=== PATIENT | female | born 1965 | race Two or more races ===

== ENCOUNTER 2021-05-12 12:13 | Outpatient (REF) | payer MEDICAID, OTHER, SELFPAY ==
--- NOTE | ~2021-05-12 | XR_ITS ---
EXAMINATION: XR LUMBAR SPINE XR SACRUM/COCCYX. CLINICAL INFORMATION: Lumbago with sciatica COMPARISON: None TECHNIQUE: 4 views of the lumbar spine. 3 views of the sacrum/coccyx. FINDINGS: There is no acute fracture. Grade 1 anterolisthesis of L5 on S1. Remainder vertebral body alignment is maintained. Disc space narrowing of L5-S1 most prominently. Mild narrowing at L4-L5. The sacroiliac joints are symmetric. No abnormal sclerosis. No fusion. The sacrum is intact. The coccyx is well aligned. Normal bowel gas pattern. XR/XR sacrum coccyx min 2V IMPRESSION: No acute abnormality. Grade 1 anterolisthesis of L5 on S1 with degenerative changes at the lower lumbar spine. Intact sacrum.
--- NOTE | ~2021-05-12 | XR_ITS ---
EXAMINATION: XR LUMBAR SPINE XR SACRUM/COCCYX. CLINICAL INFORMATION: Lumbago with sciatica COMPARISON: None TECHNIQUE: 4 views of the lumbar spine. 3 views of the sacrum/coccyx. FINDINGS: There is no acute fracture. Grade 1 anterolisthesis of L5 on S1. Remainder vertebral body alignment is maintained. Disc space narrowing of L5-S1 most prominently. Mild narrowing at L4-L5. The sacroiliac joints are symmetric. No abnormal sclerosis. No fusion. The sacrum is intact. The coccyx is well aligned. Normal bowel gas pattern. XR/XR lumbar spine 4V min IMPRESSION: No acute abnormality. Grade 1 anterolisthesis of L5 on S1 with degenerative changes at the lower lumbar spine. Intact sacrum.
== END 2021-05-12 12:14 | disposition home or self-care (01) ==
LOC: HO.XRAY 12:13
PROVIDERS: Visit Provider Emergency Medicine
DX: M53.3 Sacrococcygeal disorders, not elsewhere classified (principal); M54.41 Lumbago with sciatica, right side
CPT/HCPCS: 72110; 72220

== ENCOUNTER 2023-03-17 14:59 | Outpatient (REF) | payer MEDICAID, OTHER, SELFPAY ==
--- NOTE | ~2023-03-17 | XR_ITS ---
EXAMINATION: XR LUMBOSACRAL SPINE WITH OBLIQUES CLINICAL INFORMATION: SPONDYLOLISTHESIS AT LEVEL L5-S1 RECENT BACK SURGERY NOW HAS WORSENING PAIN. COMPARISON: Lumbar spine May 12, 2021 TECHNIQUE: AP, both oblique, and lateral views of the lumbar spine. Lateral view of the lumbosacral junction. FINDINGS: Status post fusion with transpedicular screws and vertical stabilization bar bilaterally at L5-S1. Disc spacer at L5-S1. Hardware is intact. Stable grade 1 anterolisthesis of L5 on S1. No spondylolysis. No fracture. No bone destruction. Minor degenerative lipping at the anterior endplates of L1 and L2. XR/XR lumbar spine 4V min IMPRESSION: Status post fusion L5-S1. Hardware is intact. Stable grade 1 anterolisthesis of L5 on S1. No acute abnormality.
== END 2023-03-17 15:00 | disposition home or self-care (01) ==
LOC: HO.HHCX 14:59
PROVIDERS: Visit Provider Emergency Medicine
DX: M43.17 Spondylolisthesis, lumbosacral region (principal)
CPT/HCPCS: 72110

== ENCOUNTER 2023-04-07 13:14 | Outpatient (AMB) | payer OTHER, SELFPAY ==
--- NOTE | 2023-04-07 13:49 | MHC.OFFVIS ---
Intake Intake Visit Reasons: back pain Networking Administrator Required: No Assessment & Plan Assessment & Plan (1) Carpal tunnel syndrome: Code(s): G56.00 - Carpal tunnel syndrome, unspecified upper limb (2) Lumbar degenerative disc disease: Code(s): M51.36 - Other intervertebral disc degeneration, lumbar region Plan MRs Rojelio Benz is here in follow-up today. She underwent a trans Kambin oblique lumbar interbody fusion on September 05 of this year. Initially she did well for about a month with relief of her leg pain but now she is reporting that she is having progressive worsening of back pain along the left paraspinal region radiating down into her left buttock and into her left lateral thigh. It is aggravated with standing and walking gets better when she sits down. She will take ibuprofen if she needs. The symptoms are getting steadily worse. On exam she is very uncomfortable with standing and walking and she has a lot of pain along the left paraspinal incision. Her overall gross motor examination is normal. The x-rays done today show stable placement of hardware compare it to where was left at the time of her surgery. She also wanted discuss carpal tunnel symptoms that she has been having for quite some time as well. She has had many months of hand numbness at night with pain along her wrist with feelings of weakness. She had a positive Tinel sign and some mild weakness of the hand. Impression: 57-year-old female status post L5-S1 trans Kambin lumbar interbody fusion, who had a nice clinical response for about a month but now has had progressive steadily return of the pain and numbness down her left leg as well as back pain. Her x-rays show stable positioning of the hardware. I am going to order lumbar MRI and a CT scan to better evaluate the source of the issue. I will also get a right upper extremity EMG to establish a diagnosis of carpal tunnel as she is interested in surgery for that if we can not fix it. Total amount of time spent in this visit was 20 minutes in discussion of symptoms, x-ray imaging results and subsequent plan of care Trell Fuller MD,PhD [facility] Orders: Orders CT lumbar spine wo IV con Today M51.36 - Other intervertebral disc degeneration, lumbar region NE electromyogram (EMG) Today G56.00 - Carpal tunnel syndrome, unspecified upper limb MR lumbar spine wo con Today M51.36 - Other intervertebral disc degeneration, lumbar region Coding Level of Care Code Est Pt Level 3 (83059) Diagnoses Carpal tunnel syndrome G56.00 Lumbar degenerative disc disease M51.36
== END 2023-04-07 14:28 | disposition home or self-care (01) ==
PROVIDERS: Visit Provider Physician Assistant
DX: G56.00 Carpal tunnel syndrome, unspecified upper limb (principal); M51.36 Other intervertebral disc degeneration, lumbar region
CPT/HCPCS: 99213

== ENCOUNTER → 2023-04-07 13:14 | Outpatient (BNVA) | payer OTHER, SELFPAY | PROVIDERS: Visit Provider Physician Assistant | DX: G56.00 Carpal tunnel syndrome, unspecified upper limb (principal); M51.36 Other intervertebral disc degeneration, lumbar region | CPT/HCPCS: 99212 ==

== ENCOUNTER 2023-05-19 13:36 | Outpatient (REF) | payer OTHER, SELFPAY ==
--- NOTE | ~2023-05-19 | CT_ITS ---
EXAMINATION: CT LUMBAR SPINE WITHOUT CONTRAST CLINICAL INFORMATION: Lumbar disc degeneration COMPARISON: Lumbar radiographs 03/17/2023 TECHNIQUE: A multidetector CT acquisition of the lumbar spine is obtained without contrast. This CT examination was performed using dose optimization techniques as appropriate, variously including the following: *Automated exposure control *Adjustment of mA and/or kV according to patient size (this includes techniques or standardized protocols for targeted exams where dose is matched to indication/reason for exam; i.e. extremities or head) *Use of iterative reconstruction technique DLP: 408.03 mGy-cm FINDINGS: Postsurgical changes status post L5-S1 instrumented posterior interbody fusion utilizing paired vertical stabilization rods and bilateral transpedicular screws at the surgical levels. There is no periprosthetic lucency to suggest osteolysis. There is an L5-S1 interbody disc cage without interbody bone fusion mass. There is subsidence of the interbody disc cage, more pronounced along the S1 upper endplate, with a somewhat vertical positioning of the interbody disc cage as seen on prior radiographs. L5-S1 endplate cortical irregularity/erosive change, subjacent sclerosis and vacuum disc phenomenon may reflect pseudoarthrosis and can be correlated with the surgical timeline. Superimposed infection is a less likely diagnostic consideration given the presence of vacuum disc phenomenon. Please note comparison of endplate changes with prior radiographs from 03/17/2023 is limited across imaging modalities. Mild lumbar dextrocurvature with lower lumbar hyperlordosis. Slight anterolisthesis at L5-S1. Vertebral body heights are maintained. There is no suspicious osseous lesion. The nonsurgical intervertebral disc heights are preserved. Please not canal patency is not well assessed on this examination due to inherent limitations of CT without intrathecal contrast. Within these limitations, multilevel degenerative changes with level by level detail are as follows: L1-L2: No spinal canal or neural foraminal stenosis. L2-L3: Minimal annular disc bulge and mild bilateral facet hypertrophy. No spinal canal or neural foraminal stenosis. L3-L4: Minimal annular disc bulge and mild bilateral facet hypertrophy. No spinal canal or neural foraminal stenosis. L4-L5: Slight posterior disc uncovering/annular disc bulge and bilateral facet arthrosis. No diagnostic assessment of the spinal canal however no bony spinal canal narrowing is seen. Mild right greater than left neural foraminal stenosis. L5-S1: Postsurgical changes as above. Kyphotic angulation at the lumbosacral junction with dorsally projecting bony protuberance off the S1 superior endplate. Grade 1 anterolisthesis, disc osteophyte complex and bilateral facet arthrosis. Although streak artifact limits assessment, there is severe spinal canal stenosis and subarticular zone narrowing just below the disc space. Severe left and moderate to severe right neural foraminal stenosis with mass effect along the exiting left greater than right L5 nerve roots. Postsurgical changes in the paraspinal soft tissues with overlying scarring extending to the skin surface. Trace calcific atherosclerotic disease. The abdominal aorta is of normal contour and caliber. Mild degenerative osseous spurring across the sacroiliac joints, including an accessory articulation across the posterior joint on the right with vacuum disc phenomenon. CT/CT lumbar spine wo IV con IMPRESSION: Postsurgical changes status post L5-S1 instrumented posterior interbody fusion. Subsidence of the interbody disc cage, more pronounced along the S1 upper endplate, with a somewhat vertically oriented interbody cage as seen on prior radiographs. L5-S1 cortical endplate irregularity/erosive change, subjacent sclerosis and vacuum disc phenomenon may reflect pseudoarthrosis however can be correlated with the surgical timeline. Superimposed infection is a less likely diagnostic consideration given the presence of vacuum disc phenomenon. Please note comparison of endplate changes with prior radiographs from 03/17/2023 is limited across imaging modalities. There is kyphotic angulation at the lumbosacral junction with dorsally projecting bony protuberance off the S1 superior endplate in conjunction with spondylosis at L5-S1 resulting in severe spinal canal stenosis, severe left and moderate to severe right neural foraminal stenosis with mass effect along the exiting left greater than right L5 nerve roots.
== END 2023-05-19 13:37 | disposition home or self-care (01) ==
LOC: HO.CT 13:36
PROVIDERS: PCP Registered Nurse; Visit Provider Physician Assistant
DX: M51.36 Other intervertebral disc degeneration, lumbar region (principal)
CPT/HCPCS: 72131

== ENCOUNTER 2023-06-02 14:21 | Outpatient (REF) | payer OTHER, SELFPAY ==
--- NOTE | ~2023-06-02 | MR_ITS ---
EXAMINATION: MR LUMBAR SPINE WITHOUT CONTRAST CLINICAL INFORMATION: Intervertebral disc degeneration. COMPARISON: CT lumbar spine on 05/19/2023. TECHNIQUE: MRI of the lumbar spine was obtained using routine sequences without contrast. FINDINGS: Transitional anatomy with sacralization of the L5. Exaggerated lumbar lordosis. Postsurgical changes from posterior spinal fusion and interbody spacer at L5-S1 with associated susceptibility artifact slightly limiting evaluation. Grade 1 anterolisthesis at L5-S1 and to a lesser extent L4-L5. The vertebral body heights are otherwise preserved. Multilevel disc desiccation without significant disc height loss. The visualized spinal cord is normal in caliber. No abnormal cord signal. The conus medullaris terminates at L1. T12-L1: No significant spinal canal or neural foraminal narrowing. L1-L2: No significant spinal canal or neural foraminal narrowing. L2-L3: Small disc bulge. No significant spinal canal or neural foraminal narrowing. L3-L4: Tiny disc bulge. No significant spinal canal or neural foraminal narrowing. L4-L5: Diffuse disc bulge and bilateral facet arthrosis. Mild right neural foraminal narrowing with the disc abutting the right exiting L4 nerve roots. L5-S1: Postsurgical changes. Severe spinal canal stenosis with likely impingement of the cauda equina nerve roots at this level. [id number] right and moderate left neural foraminal narrowing with mass effect on the exiting L5 nerve roots bilaterally. The paravertebral soft tissues are unremarkable. MR/MR lumbar spine wo con IMPRESSION: - Postsurgical changes from posterior spinal fusion and interbody spacer at L5-S1 with grade 1 anterolisthesis at this level. Also at this level, there is severe spinal canal stenosis with likely impingement of the cauda equina nerve roots and moderate to severe right and moderate left neural foraminal narrowing with mass effect on the exiting L5 nerve roots bilaterally. - At L4-L5, there is mild right neural foraminal narrowing with the disc abutting the exiting right L4 nerve root.
== END 2023-06-02 14:22 | disposition home or self-care (01) ==
LOC: HO.MRI 14:21
PROVIDERS: PCP Registered Nurse; Visit Provider Neurological Surgery
DX: M51.36 Other intervertebral disc degeneration, lumbar region (principal)
CPT/HCPCS: 72148

== ENCOUNTER 2023-06-16 10:06 | Outpatient (REF) | payer OTHER, SELFPAY ==
--- NOTE | 2023-06-16 10:09 | EMG_ITS ---
Chief complaint: Right hand numbness Reason for referral: Evaluate for Carpal Tunnel Syndrome Referred by: Trell JENKINS Procedure done: Right upper extremity NCS/EMG Precautions and/or limitations: Seen with germ drier The limb temperature was monitored continuously and remained between 32-36 degrees C during the performance of the NCS. Nerve Conduction Studies Anti Sensory Summary Table ?Stim Site NR Onset (ms) Norm Onset (ms) Peak (ms) Norm Peak (ms) O-P Amp (?V) Norm O-P Amp Site1 Site2 Delta-0 (ms) Dist (cm) Bakari (m/s) Norm Bakari (m/s) Right Median Anti Sensory (2nd Digit) Wrist ? 4.8 6.2 <3.6 5.9 >10 Wrist 2nd Digit 4.8 14.0 29 Right Radial Anti Sensory (Thumb) Forearm ? 1.6 2.0 <3.1 37.3 Forearm Thumb 1.6 0.0 Right Ulnar Anti Sensory (5th Digit) Wrist ? 2.3 3.0 <3.7 21.5 >15.0 Wrist 5th Digit 2.3 14.0 61 Motor Summary Table ?Stim Site NR Onset (ms) Norm Onset (ms) O-P Amp (mV) Norm O-P Amp iAmp (mV) Amp (1st) (%) Site1 Site2 Delta-0 (ms) Dist (cm) Bakari (m/s) Norm Bakari (m/s) Right Median Motor (Abd Poll Brev) Wrist ? 6.7 <3.9 6.5 >4.5 7.5 100.0 Elbow Wrist 3.6 19.5 54 >45 Elbow ? 10.3 7.5 9.1 115.4 Right Ulnar Motor (Abd Dig Minimi) Wrist ? 2.6 <3.0 9.0 >5 10.8 100.0 B Elbow Wrist 3.0 18.5 62 >45 B Elbow ? 5.6 8.4 10.2 93.3 A Elbow B Elbow 1.7 10.0 59 >45 A Elbow ? 7.3 8.5 10.2 94.4 EMG ?Side Muscle Nerve Root Ins Act Fibs Psw Amp Dur Poly Recrt Int Pat Comment Right 1stDorInt Ulnar C8-T1 Nml Nml Nml Nml Nml 0 Nml Complete Right FlexCarRad Median C6-7 Nml Nml Nml Nml Nml 0 Nml Complete Right Biceps Musculocut C5-6 Nml Nml Nml Nml Nml 0 Nml Complete Right Triceps Radial C6-7-8 Nml Nml Nml Nml Nml 0 Nml Complete Right Deltoid Axillary C5-6 Nml Nml Nml Nml Nml 0 Nml Complete FINDINGS: Right median motor nerve showed prolonged distal latency, normal amplitude and normal conduction velocity. Right median sensory nerve showed prolonged peak latency and small amplitude. All other nerves tested were within normal. Concentric needle EMG was performed in selected muscles of the right upper extremity. Study did not reveal signs of electric abnormalities as shown in the table below. IMPRESSION: 1. This is an abnormal study. 2. There is electrodiagnostic evidence for right moderate-severe median neuropathy at the wrist, consistent with carpal tunnel syndrome. 3. There is no electrodiagnostic evidence for ulnar neuropathy, brachial plexopathy, or cervical radiculopathy. Thank you for your kind referral. Diana Brian MD, BOB Board Certified, [place] [employer] and [employer] (ABPMR) Board Certified, [place] Board of Electrodiagnostic Medicine (ABEM) CODIN 62033 / MTDD
== END 2023-06-16 10:07 | disposition home or self-care (01) ==
LOC: HO.NEURO 10:06
PROVIDERS: PCP Registered Nurse; Visit Provider Physician Assistant
DX: G56.01 Carpal tunnel syndrome, right upper limb (principal); R20.0 Anesthesia of skin
CPT/HCPCS: 95886; 95909

== ENCOUNTER → 2023-06-16 10:09 | Outpatient (BNV) | payer OTHER, SELFPAY | PROVIDERS: PCP Registered Nurse; Visit Provider Physical Medicine & Rehabilitation | DX: G56.11 Other lesions of median nerve, right upper limb (principal); G56.01 Carpal tunnel syndrome, right upper limb | CPT/HCPCS: 95886; 95909 ==

== ENCOUNTER 2023-06-23 14:20 | Outpatient (AMB) | payer OTHER, SELFPAY ==
--- NOTE | 2023-06-23 14:32 | A.SPINEOV_ITS ---
Intake Intake Visit Reasons: MRI follow up Intake Note: Ms. Serrato is here today to discuss her MRI results. Employee Development Manager Required: No Assessment & Plan Assessment & Plan (1) Carpal tunnel syndrome: Code(s): G56.00 - Carpal tunnel syndrome, unspecified upper limb (2) Lumbar degenerative disc disease: Code(s): M51.36 - Other intervertebral disc degeneration, lumbar region Plan Mrs Rojelio Benz is back in the office today. She underwent an L5-S1 trans Kambin interbody fusion and was having postoperative radiculopathy down her left leg which he was stand walk. We did a postoperative MRI, Dr. Fuller and I reviewed it and there is some moderate amount of narrowing around the L5 foramen. He offered the option of a exploration of this area if she responded to an L5 nerve block. She tells me now that she feels as though the pain may be receding somewhat so she wants to just wait and see how it goes. With regard to the right hand pain with numbness going down into her fingers, her EMG confirms carpal tunnel on the right hand. The risks pain and hand pain is somewhat severe at night and gives her a lot of difficulty sleeping. She has positive Tinel's and positive weakness of the hand. We discussed the option of a right carpal tunnel release. Risks and benefits were discussed and the patient wished to proceed. I gave her surgical date for 08/31/2023. I will update Dr. Fuller on her status. Total amount of time spent in this visit was 20 minutes in discussion of symptoms, lumbar MRI and EMG results and subsequent plan of care Trell Fuller MD,PhD [facility] Coding Level of Care Code Est Pt Level 3 (68448) Diagnoses Carpal tunnel syndrome G56.00 Lumbar degenerative disc disease M51.36
== END 2023-06-23 14:45 | disposition home or self-care (01) ==
PROVIDERS: PCP Registered Nurse; Visit Provider Physician Assistant
DX: G56.00 Carpal tunnel syndrome, unspecified upper limb (principal); M51.36 Other intervertebral disc degeneration, lumbar region
CPT/HCPCS: 99213

== ENCOUNTER → 2023-06-23 14:20 | Outpatient (BNVA) | payer OTHER, SELFPAY | PROVIDERS: PCP Registered Nurse; Visit Provider Physician Assistant | DX: M51.36 Other intervertebral disc degeneration, lumbar region (principal); G56.01 Carpal tunnel syndrome, right upper limb | CPT/HCPCS: 99212 ==

== ENCOUNTER 2023-08-31 10:30 | Day surgery (SDC) | payer OTHER, SELFPAY ==
--- NOTE | 2023-08-30 10:43 | HO.ANESPROP2 ---
Documented by User: Heaven Jacinto NP 08/30/23 10:44 HPI - Anesthesia Eval Consult details Narrative: 57yo F for Right Carpal Tunnel Release PMFSH Active Problems Active Problems: All Active Problems (Updated 04/07/23 @ 14:29 by ALICE Waller) Lumbar degenerative disc disease (Acute) Carpal tunnel syndrome (Acute) Past Medical History Medical History delivery delivered Lumbar degenerative disc disease Carpal tunnel syndrome Surgical History Surgical History History of back surgery Social History Social History Patient Tobacco Use Status: Never used Tobacco Are you DNR?: No Advance Directives: No Advance Directives Information Provided: Yes Nutrition Risks: No Nutritional Risk Meds Allergies Allergy/AdvReac Type Severity Reaction Status Date / Time No Known Allergies Allergy Verified 08/31/23 11:02 Home Medications Medication Instructions Recorded Confirmed Last Taken Type ibuprofen 600 mg tablet 600 mg PO TID PRN pain 08/31/23 08/31/23 08/15/23 History Assessment and Plan Assessment Anesthesia Assessment: Chart Reviewed Documented by User: Selene Mustafa MD 08/31/23 12:42 PMFSH Active Problems Active Problems: All Active Problems (Updated 08/31/23 @ 12:00 by Selene Mustafa MD) Lumbar degenerative disc disease (Acute) Carpal tunnel syndrome (Acute) Past Medical History Medical History delivery delivered Lumbar degenerative disc disease Carpal tunnel syndrome Family History Family history of problems with anesthesia: No Surgical History Surgical History History of back surgery History of Problems with Anesthesia: No Social History Social History Patient Tobacco Use Status: Never used Tobacco Are you DNR?: No Advance Directives: No Advance Directives Information Provided: Yes Nutrition Risks: No Nutritional Risk Meds Allergies Allergy/AdvReac Type Severity Reaction Status Date / Time No Known Allergies Allergy Verified 08/31/23 11:02 Home Medications Medication Instructions Recorded Confirmed Last Taken Type ibuprofen 600 mg tablet 600 mg PO TID PRN pain 08/31/23 08/31/23 08/15/23 History Exam Height,Weight and Vital Signs: Height 5 ft 3 in Weight 65.091 kg Vital Signs Temp Pulse Resp BP Pulse Ox O2 Del Method 08/31/23 10:39 97.3 F 62 20 138/84 99 Room Air Airway Mallampati Class: I TM Dist: >3cm Neck ROM: Full Loose/Missing/Broken Teeth: Yes (Missing teeth bottom right and left back) Heart: RRR Lungs: CTAB Assessment and Plan Assessment Anesthesia Assessment: Anesthesia Plan Discussed and Chart Reviewed Final Anesthetic Review Family History of Problems with Anesthesia: No History of Problems with Anesthesia: No NPO: Yes ASA Class: I Final Preanesthetic Review: No Changes in Pt Med Stat, Meds/Allgs Chart Reviewed, Consent Obtained/Reviewed and Anes Risks/Benef Reviewed Patient Risk: Low Procedure Risk: Low Assessment/Block/Sedation in SS: Assess/Block/Sedation-SS Anesthetic Plan Anesthetic Plan: MAC: Disposition: Standard PACU
--- NOTE | 2023-08-31 07:30 | MHC.SHP ---
Pre-Procedural Eval Section A - 24 Hr Update-Section A only Date of Service: 08/31/23 The patient is an INPATIENT: No Changes since office visit: No Cold of Flu in the past 2 weeks, No New Medical Problems, No Changes in Medication and No Patient answered all questions The patient has been examined within 24 hours of the surgical procedure. The History & Physical has been completed within 30 days and I have reviewed it.: No Section B - Complete if H&P > 30 days Chief Complaint: Carpal tunnel syndrome, unspecified upper limb Allergies: Allergies Allergy/AdvReac Type Severity Reaction Status Date / Time Unable to Assess Allergy Unverified 08/22/23 15:54 Review of Systems Sugical H&P ROS: Negative: Constitution, Cardiovascular, Respiratory, Neurological, Psychiatric, Hem-Onc, Allergic/Immunologic, Gastrointestinal, Genitourinary, Musculoskeletal, Integumentary, Endocrine and Eyes/Ears/Nose/Throat Exam Surgical H&P Exam: Not Evaluated: HEENT, Not Evaluated: Heart, Not Evaluated: Lungs, Not Evaluated: Extremities, Not Evaluated: Abdomen, Not Evaluated: Skin and Not Evaluated: Neurological Plan Diagnosis/Plan: Unchanged right carpal tunnel release Time Spent With Patient Time: Total time managing care of this patient today _6___ minutes.
[2023-08-31 10:39] VITALS: BP 138/84; PULSE 62; RESP 20; TEMP 36.3; O2SAT 99; BMI 25.4
[2023-08-31] MEDS: Gabapentin 300 MG CAPSULE PO (10:45)
[2023-08-31] MEDS: methocarbamoL 750 MG TABLET PO (10:45)
[2023-08-31] MEDS: Lactated Ringers 1,000 ML 100 ML IVCONT (11:10)
--- NOTE | 2023-08-31 14:24 | PM.DS ---
DS: Providers Provider Date of Service: 08/31/23 Primary care physician: MANI Valdez DS: Summary Time Attestation Discharge Coordination Time (in mins): 10 Quality: Safe Use of Opioids Does Pt have an Active Cancer Diagnosis on the Problem List?: No Quality: Stroke Does the patient have a stroke diagnosis?: No Physical Exam Vital Signs: Vital Signs: Last Vital Signs Temp 97.3 F 08/31/23 10:39 Pulse 62 08/31/23 10:39 Resp 20 08/31/23 10:39 BP 138/84 08/31/23 10:39 Pulse Ox 99 08/31/23 10:39 O2 Del Method Room Air 08/31/23 10:39 BMI result Body Mass Index 25.4 Discharge Plan Discharge Patient Disposition: Home, Self-Care Referrals: Gladys Hernandez FNP [Primary Care Provider] - 1 Week Discharge Medications: New tramadol 50 mg tablet 50 mg PO BID PRN (Reason: severe pain (scale score 7-10)) Qty: 14 0RF Continued ibuprofen 600 mg Tablet 600 mg PO TID PRN (Reason: pain) Discharge Orders: Discharge Order (Routine); Ordered 08/31/23 Ordered By: Lanre Hawley Diet: Advance to usual diet Activity on Discharge: As tolerated Activity Restrictions/Additional Instructions: YOU MAY REMOVE YOUR RUBY WRAP ON POST OP DAY 3, WELL THE DRESSING UNDERNEATH IT. THERE ARE SUTURES IN YOUR WOUND, AND YOU WILL NEED THESE REMOVED 10-14 DAYS AFTER SURGERY. PLEASE CALL THE OFFICE TO ARRANGE THIS VISIT, YOU CAN USE YOUR HAND MUCH YOU LIKE, HOWEVER, PLEASE AVOID STRAINING OR HEAVY LIFTING. IT WILL HELP SWELLING IN YOUR HAND TO KEEP IT ELEVATED WHEN YOU ARE NOT USING IT. YOU CAN SHOWER ON POST OP DAY 1, BUT PLEASE KEEP WOUND DRY. YOU CAN DRIVE WHEN YOU FEEL COMFORTABLE AND ARE OFF NARCOTICS. IF YOU EXPERIENCE ANY SIGNS OF INFECTION SUCH FEVER, CHILLS OR REDNESS/DISCHARGE FROM YOUR WOUND,PLEASE CALL OFFICE RIGHT AWAY.
--- NOTE | 2023-08-31 14:26 | W.PM.OPN ---
Operative Note Operative Note Date of Service: 08/31/23 Narrative: Diagnosis: Right carpal tunnel syndrome Procedure: Right median nerve release Surgeon: Lux Fuller MD PhD Description procedure: This 56-year-old female suffering from a right carpal tunnel syndrome. The patient was offered a decompression of the median nerve. The procedure complications were explained. The patient was consented. He was brought to the operating room, where moderate sedation was applied. Prepping and draping was done followed by time-out. Marcaine was injected into the mid volar region. A midvolar incision was made. The ligamentum carpi transversum was opened sharply until the median nerve became visible. A Metzenbaum scissor was used to decompress the median nerve proximally and distally over its trajectory. Significant compression was present. Hemostasis was done. The incision was closed with 3 interrupted sutures. A compressive RUBY wrap was used for hemostasis. All sponge and needle counts were correct. Patient was transported to the recovery room. Anesthesia: Moderate sedation and local anesthetic Blood loss: Minimal Complications: None Disposition: Discharge home
[2023-08-31 14:30] VITALS: BP 90/41; PULSE 67; RESP 10; TEMP 36.1; O2SAT 97
[2023-08-31 14:45] VITALS: BP 92/53; PULSE 53; RESP 16; O2SAT 98
[2023-08-31 15:00] VITALS: BP 109/68; PULSE 64; RESP 16; TEMP 36.1; O2SAT 99
== END 2023-08-31 15:11 | disposition home or self-care (01) ==
PROVIDERS: PCP Registered Nurse; Visit Provider Neurological Surgery
PROC: (CPT 64721; principal; 2023-08-31 14:00)
DX: G56.01 Carpal tunnel syndrome, right upper limb (principal); R20.0 Anesthesia of skin; M51.36 Other intervertebral disc degeneration, lumbar region; Z98.890 Other specified postprocedural states; Z79.1 Long term (current) use of non-steroidal anti-inflammatories (NSAID)
CPT/HCPCS: 64721; J0131; J0690; J2250; J2704; J3010

== ENCOUNTER → 2023-08-31 10:30 | Outpatient (BNV) | payer OTHER, SELFPAY | PROVIDERS: PCP Registered Nurse; Visit Provider Neurological Surgery | DX: G56.01 Carpal tunnel syndrome, right upper limb (principal) | CPT/HCPCS: 64721; 99499 ==

== ENCOUNTER 2023-09-14 11:31 | Outpatient (AMB) | payer OTHER, SELFPAY ==
--- NOTE | 2023-09-14 11:31 | A.SPINEOV_ITS ---
Intake Intake Visit Reasons: 2wk staple removal Intake Note: Ms. Serrato is here for 2week staple removal. Coordinator Cardiopulmonary Services Required: No Allergies No Known Allergies Allergy (Verified 08/31/23 11:02) Assessment & Plan Assessment & Plan (1) Carpal tunnel syndrome: Code(s): G56.00 - Carpal tunnel syndrome, unspecified upper limb Plan PROCEDURE: Right carpal tunnel release Cassie comes in today for a suture removal after a right-sided carpal tunnel release. She type 3 interrupted sutures placed on the ventral surface of her wrist. These 3 interrupted sutures were removed. The patient tolerated the procedure well. She states that she does have some better movement/articulation with her right hand. She reports no significant pain, swelling, or other concerns at this time. We will follow up with her again in 4 weeks for a subsequent visit. If she continues to do well she may be discharged as a patient at that time. Lanre Fuller MD,PhD [facility] Coding Level of Care Code Global (49994) Diagnoses Carpal tunnel syndrome G56.00
== END 2023-09-14 11:40 | disposition home or self-care (01) ==
LOC: HO.HNS 11:31
PROVIDERS: PCP Registered Nurse; Visit Provider Physician Assistant
DX: G56.00 Carpal tunnel syndrome, unspecified upper limb (principal)
CPT/HCPCS: 99024

== ENCOUNTER → 2023-09-14 11:31 | Outpatient (BNVA) | payer OTHER, SELFPAY | PROVIDERS: PCP Registered Nurse; Visit Provider Physician Assistant | DX: Z48.1 Encounter for planned postprocedural wound closure (principal); Z86.69 Personal history of other diseases of the nervous system and sense organs; Z98.890 Other specified postprocedural states | CPT/HCPCS: 99212 ==

== ENCOUNTER 2023-10-13 13:05 | Outpatient (AMB) | payer OTHER, SELFPAY ==
--- NOTE | 2023-10-13 13:06 | HO.SPINEOV ---
Intake Visit Reasons: post op Intake Note: Ms. Serrato is here today for her 1st post-op appointment. Nuclear Weapons Specialist Required: Yes Nuclear Weapons Specialist Name: Carlos Hi Allergies No Known Allergies Allergy (Verified 10/13/23 13:09) Assessment & Plan Assessment & Plan (1) Carpal tunnel syndrome: Code(s): G56.00 - Carpal tunnel syndrome, unspecified upper limb Category: Medical Plan Cassie comes in today for a follow-up appointment after a right-sided carpal tunnel release procedure. She continues to do very well, and reports no concerns regarding the surgery. She states ?my hand feels like it is brand new.? She is able to curl her fingertips to the distal palmar crease without issue, and has full hand physician obstetrician strength. Her incision site appears fully healed, and there is no residual swelling or erythema. Her surgery appears to have been very successful, and there is no need for continued routine follow-up at this time. She may be discharged as a patient. Lanre Fuller MD,PhD [facility]
== END 2023-10-13 13:35 | disposition home or self-care (01) ==
PROVIDERS: PCP Registered Nurse; Visit Provider Physician Assistant
DX: G56.00 Carpal tunnel syndrome, unspecified upper limb (principal)
CPT/HCPCS: 99024

== ENCOUNTER → 2023-10-13 13:05 | Outpatient (BNVA) | payer OTHER, SELFPAY | PROVIDERS: PCP Registered Nurse; Visit Provider Physician Assistant | DX: G56.01 Carpal tunnel syndrome, right upper limb (principal); Z09 Encounter for follow-up examination after completed treatment for conditions other than malignant neoplasm | CPT/HCPCS: 99212 ==

== ENCOUNTER 2024-03-06 10:27 | Outpatient (REF) | payer OTHER, SELFPAY ==
[2024-03-06 11:47] LABS: Estimated Average Glucose 111 mg/dL; Hemoglobin A1c % 5.5 % (<6.0)
[2024-03-06 12:12] LABS: Alanine Aminotransferase 15 U/L (0-31); Albumin Level 4.4 g/dL (3.5-5.0); Alkaline Phosphatase 95 U/L (39-117); Anion Gap 15 (12-20); Aspartate Amino Transferase 17 U/L (5-31); Bilirubin Total 0.2 mg/dL (0.0-1.0); Blood Urea Nitrogen 12 mg/dL (9-16); Calcium 9.8 mg/dL (8.4-10.2); Carbon Dioxide 27 mmol/L (22-29); Chloride 105 mmol/L (96-108); Cholesterol 231 mg/dL (<200); Estimated Glomerular Filt Rate > 60; Glucose Random 98 mg/dL (60-115); HDL Cholesterol 44 mg/dL (>40); LDL Cholesterol Calculated 169 mg/dL (<100); Potassium 4.1 mmol/L (3.3-5.1); Sodium 143 mmol/L (135-145); Total Protein 7.7 g/dL (6.5-8.0); Triglycerides 90 mg/dL (<150)
[2024-03-06 12:24] LABS: HBS Num1 120.31 mIU/mL (0-7.99); HBc Num1 0.22 S/CO (0.00-0.79); HBsAGNum1 0.31 S/CO (0.00-0.99); HIV AB/AG Nonreactive (Nonreactive); HIV Num 1 0.04 S/CO (0.00-0.99); Hepatitis B Core Antibody Nonreactive (Nonreactive); Hepatitis B Surface Antigen Negative (Negative); ~HepC Num1 0.19 S/CO (0.00-0.79); ~Hepatitis B Surface Antibody REACTIVE (Nonreactive); ~Hepatitis C Antibody Nonreactive (Nonreactive)
[2024-03-06 12:25] LABS: Syphilis Screen Nonreactive (Nonreactive)
== END 2024-03-06 10:28 | disposition home or self-care (01) ==
LOC: HO.HHCL 10:27
PROVIDERS: Visit Provider Registered Nurse
DX: Z12.31 Encounter for screening mammogram for malignant neoplasm of breast (principal)
CPT/HCPCS: 36415; 80053; 80061; 83036; 86704; 86706; 86780; 86803; 87340; 87389

== ENCOUNTER 2024-04-24 11:16 | Outpatient (REF) | payer OTHER, SELFPAY ==
--- NOTE | ~2024-04-24 | MM_ITS ---
EXAMINATION: MM SCREENING DIGITAL BREAST TOMOSYNTHESIS, BILATERAL CLINICAL INFORMATION: Screening. Asymptomatic. COMPARISON: Mammography: Baseline. TECHNIQUE: Digital breast mammography with tomosynthesis is performed in both the craniocaudal and mediolateral oblique views along with computer-aided detection (CAD). FINDINGS: The breasts are heterogeneously dense, which may obscure small masses (ACR BI-RADS breast composition Category c). There are no significant masses, abnormal calcifications, or other abnormalities. MM/MM tomosynthesis screening BI IMPRESSION: No mammographic evidence of malignancy. ASSESSMENT: BI-RADS BI-RADS 1 - Negative RECOMMENDATION: Routine annual mammography screening. 1 year F/U This examination should not preclude the clinical evaluation of a suspicious palpable abnormality. This patient's information was entered into a reminder system with a target due date for their next mammogram. Electronically signed by: Mayra Reyez DO 05/03/2024 09:35 AM JOANNE
== END 2024-04-24 11:17 | disposition home or self-care (01) ==
LOC: HO.MAMMO 11:16
PROVIDERS: PCP Registered Nurse; Visit Provider Registered Nurse
DX: Z12.31 Encounter for screening mammogram for malignant neoplasm of breast (principal)
CPT/HCPCS: 77063; 77067

== ENCOUNTER → 2024-04-24 11:30 | Outpatient (BNV) | payer OTHER, SELFPAY | PROVIDERS: PCP Registered Nurse; Visit Provider Internal Medicine | DX: Z12.31 Encounter for screening mammogram for malignant neoplasm of breast (principal) | CPT/HCPCS: 77063; 77067 ==

== ENCOUNTER 2024-06-05 18:03 | Outpatient (REF) | payer OTHER, SELFPAY ==
[2024-06-06 10:50] LABS: HPV 16,18/45 See PAP report
[2024-06-16 01:19] LABS: C. trachomatis RNA TMA Not Detected (Not Detected); N. gonorrhoeae RNA TMA Not Detected (Not Detected); Trichomonas (NAAT) Not Detected (Not Detected)
== END 2024-06-05 18:04 | disposition home or self-care (01) ==
LOC: HO.HHCLNP 18:03
PROVIDERS: Visit Provider Registered Nurse
DX: Z12.4 Encounter for screening for malignant neoplasm of cervix (principal)
CPT/HCPCS: 87491; 87591; 87624; 87661; 88175

== ENCOUNTER 2024-11-27 09:12 | Outpatient (AMB) | payer OTHER, SELFPAY ==
--- NOTE | 2024-11-27 09:17 | A.SPINEOV_ITS ---
Intake Visit Reasons: back pain Intake Note: Ms. Serrato is here today c/o back pain. Operations Specialist Required: Yes Operations Specialist Name: Lazaro (Daughter) Allergies No Known Allergies Allergy (Verified 11/27/24 09:18) Assessment & Plan Assessment & Plan (1) Lumbar radiculopathy: Code(s): M54.16 - Radiculopathy, lumbar region Category: Medical Plan HPI: Cassie is a pleasant 59-year-old female who comes in today for a follow-up visit to discuss her continued low back pain. To recap she had an L5-S1 lumbar fusion completed by Dr. Alina castillo when he was at [facility]. She also had a right-sided carpal tunnel release completed in August of 2023. She reports that after her surgery she had very good relief of her low back pain. Unfortunately over the course of the last 6 months or so she began experiencing fairly significant low back pain with shooting pains down the posterior aspect of her bilateral lower extremities terminating at the bottom of the feet. She does report some burning/tingling associated with the pain but denies any significant numbness. When asked which is worse her leg pain or her back pain, she states that her leg pain feels as though it is a bit worse than her low back pain. She states that positionally, her pain does not change very much. She has essentially will feel the pain throughout the day no matter what she is doing. The pain is not so severe that it is waking her up at night, and she has largely been mitigating her symptoms with ibuprofen but she feels this is not enough. Imaging: MRI of the lumbar spine completed in 2022 shows lumbar fusion L5-S1 with posterior instrumentation. At L4-5 there does appear to be moderate bilateral foraminal stenosis, worse on the right-hand side. Exam: The patient has 5/5 strength in her upper and lower extremities. She does elicit pain to bilateral knee flexion, but is still able to engage full strength. She has no significant sensational deficits on examination today. She ambulates well, and rises from a seated position without difficulty. Her gait is non spastic and nonantalgic. Plan: I will send in a box of lidocaine patches for the patient, she states she has previously had good relief from these. I would also like to send her for a course of physical therapy to see if they can work out any musculoskeletal related pain that the patient may have. If she continues to experience pain despite these conservative measures, I believe a repeat lumbar MRI will need to be ordered. She will call the clinic after she completes physical therapy if she continues to experience pain. Laner Fuller MD,PhD [facility] Orders: Orders PT Evaluation and Treatment Today M54.50 - Low back pain, unspecified Medications: New lidocaine 5% leave on most painful area for up to 12 hrs 1 patch topical DAILY 30 ea 0RF low back pain Coding Level of Care Code Est Pt Level 3 (58474) Diagnoses Lumbar radiculopathy M54.16
--- OUTSIDE RECORDS SUMMARY | 2024-11-27 09:38 | XMS_ITS | Clinical Summary ---
Author Organization [facility] ity Address [address] [place] [address] Care Team Providers Care Cognos Developer Name Role Phone Abigail Ferguson RN Primary Care Provider [phone] Surgical History Surgery Date Site/Laterality Comments SECTION 1998 PROCEDURE: RI DELIVERY ONLY Medical History Medical History Date Comments Low back pain DX:Low back pain Social History Tobacco Use Types Packs/Day Years Used Date Smoking Tobacco: Never Smokeless Tobacco: Never Comments Unknown Sex and Gender Information Value Date Recorded Sex Assigned at Not on file Legal Sex Female 9:26 AM EST Gender Identity Not on file Sexual Orientation Not on file Obstetrics History Last Filed Vital Signs Vital Sign Reading Time Taken Comments Blood Pressure - - Pulse - - Temperature - - Respiratory Rate - - Oxygen Saturation - - Inhaled Oxygen Concentration - - Weight 64 kg (141 lb) 05/10/2022 1:02 PM EST Height 157.5 cm (5' 2 ) 05/10/2022 1:02 PM EST Body Mass Index 25.79 05/10/2022 1:02 PM EST Plan of Treatment Health Maintenance Due Date Last Done Comments Breast Cancer Screening 1967 DTaP,Tdap,and Td Vaccines (1 - Tdap) 10/23/1986 Hepatitis B Vaccines (1 of 3 - 19+ 3-dose series) 10/23/1986 Cervical Cancer Screening: P ap Smear 10/23/1988 Pneumococcal Vaccine: 50+ Years (1 of 1 - PCV) 10/23/2017 Zoster Vaccines (1 of 2) 10/23/2017 Colorectal Cancer Screening: Colonoscopy 05/23/2022 Depression Screening 05/23/2022 HIV Screening 05/23/2022 Hepatitis C Screening 05/23/2022 Social Influencers of Health Screening 05/23/2022 COVID-19 Vaccine (3 - 2023-2 5 season) 2024 05/03/2021, 04/12/2021 Influenza Vaccine (Season Ended) 2025 HIB Vaccines Aged Out No longer eligi ble based on patient's age to complete this topic HPV Vaccines Aged Out No longer eligi ble based on patient's age to complete this topic Hepatitis A Vaccines Aged Out No long er eligible based on patient's age to complete this topic IPV Vaccines Aged Out No longer eligi ble based on patient's age to complete this topic MMR Vaccines Aged Out No longer eligi ble based on patient's age to complete this topic Meningococcal ACWY Vaccine Aged Out N o longer eligible based on patient's age to complete this topic Meningococcal B Vaccine Aged Out No l onger eligible based on patient's age to complete this topic Pneumococcal Vaccine: Pediatrics (0 to 5 Years) and At-Risk Patients (6 to 64 Years) Aged Out No longer eligible b ased on patient's age to complete this topic RSV Immunization Patients Under 20 months Aged Out No longer eligible b ased on patient's age to complete this topic Varicella Vaccines Aged Out No longer eligible based on patient's age to complete this topic Care Teams Cognos Developer Relationship Specialty Start Date End Date Abigail Ferguson RN [address] [place] [id number] PCP - General 05/10/22
== END 2024-11-27 10:05 | disposition home or self-care (01) ==
LOC: HO.HNS 09:15
PROVIDERS: PCP Registered Nurse; Visit Provider Physician Assistant
DX: M54.16 Radiculopathy, lumbar region (principal)
CPT/HCPCS: 99213

== ENCOUNTER → 2024-11-27 09:12 | Outpatient (BNVA) | payer OTHER, SELFPAY | PROVIDERS: PCP Registered Nurse; Visit Provider Physician Assistant | DX: M54.16 Radiculopathy, lumbar region (principal) | CPT/HCPCS: 99212 ==

== ENCOUNTER 2025-01-22 12:53 | Outpatient (RCR) | payer OTHER, SELFPAY ==
--- NOTE | 2024-12-25 15:39 | MHC.PT.EP ---
[facility] [place] Office [place] Office [place] Office [address] Betito Fofana [address] [phone] F: [phone] F: [phone] F: [phone] F: [phone] Physical Therapy Plan of Care Date of Evaluation: 12/25/24 Date of Surgery: 2022 Diagnosis: Low back pain, unspecified per referral: Patient has persistent low back pain despite L5-S1 lumbar fusion 3 years ago Assessment: Pt is a pleasant and motivated 59yo F who presents to PT with low back pain radiating into LE's, R>L. She presents to PT with current impairments in pain, decreased ROM, decreased strength, decreased core stabilization, soft tissue restrictions, and impaired posture. She is limited functionally by morning, bending, prolonged sitting, and prolonged standing. She is a good candidate for skilled PT in order to address current impairments to facilitate return to PLOF. She is recommended to be seen 2x/week for 4 weeks and will be reassessed at that time Frequency and Duration: The patient will be seen 2x/week for 4 weeks Short Term Goals: Pt will be I with HEP to promote self management of symptoms Pt will have centralization of symptoms Pt will demonstrate improvements in body mechanics throughout the day Design And Sales Consultant Goals: Pt will demonstrate ability to squat and merchandise pickup/receiving associate object with proper mechanics Pt will tolerate prolonged sitting > 30 minutes with minimal to no pain or discomfort Pt will demonstrate improvements in function as evidenced by statistically significant improvement in Modified Oswestry Low Back Pain Disability Index Questionnaire Treatment Plan: Modalities to reduce pain, spasms and effusion. Manual therapy to restore motion and function. Therapeutic exercise to improve strength and flexibility. Neuromuscular re-education for posture and balance. Therapeutic activities to return to functional activities of daily living. Electronically signed by: Corina Gudino, PT, DPT Please sign and return to therapist. Thank you for your referral.
== END 2025-03-04 11:42 | disposition home or self-care (01) ==
LOC: HO.PTS 12:53
PROVIDERS: Visit Provider Physician Assistant
DX: M54.50 Low back pain, unspecified (principal); Z98.1 Arthrodesis status
CPT/HCPCS: 97110; 97162

== ENCOUNTER 2025-02-26 18:21 | Outpatient (REF) | payer OTHER, SELFPAY ==
--- NOTE | ~2025-02-26 | MR_ITS ---
EXAMINATION: MR LUMBAR SPINE WITHOUT CONTRAST CLINICAL INFORMATION: Weakness and numbness, left lower extremity. COMPARISON: June 02, 2023. TECHNIQUE: MRI of the lumbar spine was obtained using routine sequences without contrast. FINDINGS: Last rib-bearing vertebra labeled T12. Paramagnetic field distortion secondary to metallic hardware placed in the posterior elements of L5 and S1 and intervertebral body disc spacer L5-S1. No bone marrow STIR signal abnormality. Pronounced lordosis from L3 to S1. Multilevel marginal osteophyte formation and disc desiccation from T10-11 to L2-3. Grade 1 anterolisthesis L4-5. Grade 1 retrolisthesis L1-2 and L2-3. Conus medullaris ends at intervertebral disc T12-L1 with normal signal. There is no grouping or clumping of the neural elements of the thecal sac. There is no empty thecal sac sign. T12-L1: No disc herniation. No neuroforamina stenosis. L1-2: Broad-based disc bulging. Facet joint and ligamentum flavum hypertrophy. No central spinal canal or neuroforamina stenosis. L2-3: Broad-based disc bulging. Facet joint and ligamentum flavum hypertrophy. No central spinal canal stenosis. Bilateral neuroforamina narrowing without compressing the exiting nerve roots. L3-4: Broad-based disc bulging. Facet joint and ligamentum flavum hypertrophy. No central spinal canal stenosis. Bilateral neuroforamina narrowing without compressing the exiting nerve roots. L4-5: Broad-based disc bulging. Facet joint hypertrophy. Reduced AP diameter of the thecal sac and bilateral neuroforamina narrowing likely encroaching the neural elements. L5-S1: Postsurgical changes. CSF effacement of the thecal sac. Central spinal canal stenosis compressing the neural elements. Bilateral neuroforamina narrowing likely encroaching the exiting nerve roots. No prevertebral compartment hematoma, mass or fluid collection. MR/MR lumbar spine wo con IMPRESSION: Central spinal canal stenosis compressing the neural elements of the thecal sac and the exiting nerve roots at L5-S1 on a multifactorial basis. Mild to moderate central spinal canal and bilateral neuroforamina stenosis at L4-5 posterior encroaching the neural elements. Increased lordosis from L3 to S1. Electronically signed by: Arie Arana MD 02/27/2025 07:13 AM EDT RP
--- OUTSIDE RECORDS SUMMARY | 2025-02-26 18:38 | XMS_ITS | Encounter Summary ---
Author Organization [employer] Address [address] [facility] [address] [place] [address] Care Team Providers Care Cartographic Designer Name Role Phone Gladys Hernandez FROTHING MACHINE OPERATOR Primary Care Provider [phone] Encounter Details Date Type Department Care Team ([facility] st Contact Info) Description 10/22/2024 Orders Only [facility] MED & PEDS [address] [place], [place] [id number] Carolyn Forte Social History Tobacco Use Types Packs/Day Years Used Date Smoking Tobacco: Never Smokeless Tobacco: Never Alcohol Use Standard Drinks/Week Comments Never 0 (1 standard drink = 0.6 oz pur e alcohol) Depression Answer Date Recorded Patient Health Questionnaire-9 Score 0 03/06/2024 Patient Health Questionnaire-9 Score 0 03/06/2024 Last PHQ-9: Questionnaire Data Not on file 0 03/06/2024 Housing Stability Answer Date Recorded What is your housing situation today? I have addi eddy 03/06/[address] you li ve. Do you have problems with any of the following? None of the above 03/06/2024 Food Insecurity Answer Date Recorded Within the past 12 months, y ou worried that your food would run out before you got money to buy more: Never True 03/06/2024 Within the past 12 months,th e food you bought just didn't last and you didn't have enough money to get more: Never True 04/2024 Transportation Answer Date Recorded In the past 12 months, has l ack of transportation kept you from medical appts, meetings, work or from getting things needed for daily living? No 03/06/2024 Utilities Answer Date Recorded In the past 12 months, has t he electric, gas, oil or water company threatened to shut off services in your home? No 03/06/2024 Depression Answer Date Recorded Patient Health Questionnaire-2 Score 0 03/06/2024 Internet Access Answer Date Recorded Internet Access Q1 Yes 03/06/2024 Internet Access Q2 Not on file 03/06/2024 Comments No Sex and Gender Information Value Date Recorded Sex Assigned at Female 04/25/2022 10:39 AM EDT Legal Sex Female 10:39 AM EDT Gender Identity Female 04/25/2022 10:39 AM EDT Sexual Orientation Straight 04/25/2022 10 :39 AM EDT documented as of this encounter Plan of Treatment Upcoming Encounters Date Type Department Care Team (Late st Contact Info) Description 04/16/2025 2:30 PM EDT Office Visit [facility] OPTOMETRY [address] [place], [place] [id number] Minerva Garnett, OD [address] [place] [address] documented as of this encounter Procedures Procedure Name Priority Date/Time Associated Diagnosis Comments HPV MRNA E6/E7 REFLEX TO HPV 16, 18/45 Routine 06/05/2024 12:00 AM EST documented in this encounter Results * HPV mRNA E6/E7 w/Reflex to HPV Genotypes 16, 18/45 (06/05/2024 12:00 AM EST) us Historical Provider LAB CYTOLOGY ORDERABLES F inal Result documented in this encounter Visit Diagnoses Not on filedocumented in this encounter Additional Health Concerns Assessment Noted Time PHQ-9 Depression Total Score: 0 03/06/20 24 9:16 AM EDT documented as of this encounter Care Teams Cartographic Designer Relationship Specialty Start Date End Date Gladys Hernandez FNP [address] [place] [address] PCP - General Family Medicine 02/17/22 documented as of this encounter
--- OUTSIDE RECORDS SUMMARY | 2025-02-26 18:38 | XMS_ITS | Encounter Summary ---
Author Organization [employer] Address [address] [place] [address] 7 [place] [address] Care Team Providers Care Retail Planner Name Role Phone [facility] Primary Care Provider [phone] Reason for Visit * Reason Onset Date Comments Referral 06/27/2023 Encounter Details Date Type Department Care Team ([facility] st Contact Info) Description 06/27/2023 Telephone [facility] MEDICINE [address] [place], [place] [phone] [facility] [address] [place] [address] Referral Social History Tobacco Use Types Packs/Day Years Used Date Smoking Tobacco: Never Smokeless Tobacco: Never Alcohol Use Standard Drinks/Week Comments Never 0 (1 standard drink = 0.6 oz pur e alcohol) Depression Answer Date Recorded Patient Health Questionnaire-9 Score 0 11/24/2022 Housing Stability Answer Date Recorded What is your housing situation today? I have addi eddy 04/18/[address] you li ve. Do you have problems with any of the following? None of the above 04/18/2023 Food Insecurity Answer Date Recorded Within the past 12 months, y ou worried that your food would run out before you got money to buy more: Never True 04/18/2023 Within the past 12 months,th e food you bought just didn't last and you didn't have enough money to get more: Never True Transportation Answer Date Recorded In the past 12 months, has l ack of transportation kept you from medical appts, meetings, work or from getting things needed for daily living? No 04/18/2023 Utilities Answer Date Recorded In the past 12 months, has t he electric, gas, oil or water company threatened to shut off services in your home? No 04/18/2023 Depression Answer Date Recorded Patient Health Questionnaire-2 Score 0 11/24/2022 Comments Unknown Sex and Gender Information Value Date Recorded Sex Assigned at Female 04/25/2022 10:39 AM EDT Legal Sex Female 10:39 AM EDT Gender Identity Female 04/25/2022 10:39 AM EDT Sexual Orientation Straight 04/25/2022 10 :39 AM EDT documented as of this encounter Miscellaneous Notes * Telephone Encounter - Sarita Aguilar - 06/27/2023 12:14 PM EST Tc from pt daughter requesting a new referral for dermatology to be sent somewhere else due to pt not having any changes and looking for a second opinion . Please contact daughter @ [phone] documented in this encounter Plan of Treatment Upcoming Encounters Date Type Department Care Team (Late st Contact Info) Description 04/16/2025 2:30 PM EDT Office Visit [facility] OPTOMETRY [address] [place] [address] Minerva Garnett, OD [address] [place] [address] documented as of this encounter Visit Diagnoses Not on filedocumented in this encounter Additional Health Concerns Assessment Noted Time PHQ-9 Depression Total Score: 0 11/25/19 23 9:46 AM EDT documented as of this encounter Care Teams Retail Planner Relationship Specialty Start Date End Date Gladys Hernandez FNP [address] [place] [address] PCP - General Family Medicine 02/17/22 documented as of this encounter
--- OUTSIDE RECORDS SUMMARY | 2025-02-26 18:38 | XMS_ITS | Encounter Summary ---
Author Organization [email or web address] Address [address] [facility] 7[address] [place] [address] Care Team Providers Care Manager Acute Name Role Phone Gladys Hernandez ANIMAL THERAPIST Primary Care Provider [phone] Encounter Details Date Type Department Care Team ([facility] st Contact Info) Description 05/23/2023 Abstract [facility] MEDICINE [address] [place] [address] Carolyn Forte Social History Tobacco Use Types [...] Description 04/16/2025 2:30 PM EDT Office Visit [facility] OPTOMETRY [address] [place], [place] [phone] Tamir, Minerva, OD [address] [place] [address] documented as of this encounter Visit Diagnoses Not on filedocumented in this encounter Additional Health Concerns Assessment Noted Time PHQ-9 Depression Total Score: 0 11/25/19 23 9:46 AM EDT documented as of this encounter Care Teams Manager Acute Relationship Specialty Start Date End Date Gladys Hernandez FNP [address] [place] [address] PCP - General Family Medicine 02/17/22 documented as of this encounter
--- OUTSIDE RECORDS SUMMARY | 2025-02-26 18:38 | XMS_ITS | Encounter Summary ---
Author Organization [employer] Address [address] [place] [address] [address] [place] [address] Care Team Providers Care Warehouse Clerk Name Role Phone [facility] Primary Care Provider [phone] Reason for Visit * Reason Onset Date Comments Appointment Request 12/27/2023 Encounter Details Date Type Department Care Team ([facility] Contact Info) Description 12/27/2023 Telephone [facility] MEDICINE [address] [place], [place] [phone] [facility] [address] [place] [address] Appointment Request Social History Tobacco Use Types Packs/Day Years [...] encounter Miscellaneous Notes * Telephone Encounter - Thanh Sethi - 12/27/2023 1:50 PM EDT Tc from the patients daughter requesting a PE appt states the patient would just like to make sure everything is fine there is no concerns at the moment and would like the appt to be on a Monday documented in this encounter Plan of Treatment Upcoming Encounters Date Type Department Care Team (Late st Contact Info) Description 04/16/2025 2:30 PM EDT Office Visit [facility] OPTOMETRY [address] [place] [address] Minerva Garnett, ERIC [address] [place] [address] documented as of this encounter Visit Diagnoses Not on filedocumented in this encounter Additional Health Concerns Assessment Noted Time PHQ-9 Depression Total Score: 0 11/25/19 23 9:46 AM EDT documented as of this encounter Care Teams Warehouse Clerk Relationship Specialty Start Date End Date Gladys Hernandez FNP [address] [place] [address] PCP - General Family Medicine 02/17/22 documented as of this encounter
--- OUTSIDE RECORDS SUMMARY | 2025-02-26 18:39 | XMS_ITS | Clinical Summary ---
Author Organization [facility] Address [address] [place] [address] Care Team Providers Care Edging Machine Catcher Name Role Phone MerylRose Primary Care Provider [phone] Allergies Active Allergy Reactions Criticality Noted Date Comments Shellfish Derived Angioedema High 09/29/2021 THROAT SWELLING/EYE SWELLING Medications baclofen (LIORESAL) 10 mg tablet Take 10 mg by mouth 2 times a day. Active gabapentin (NEURONTIN) 300 mg capsule Take 300 mg by mouth 3 times a day. Active acetaminophen (TYLENOL) 500 mg tablet Take 500 mg by mouth every 6 hours as needed. 04/07/2021 Active amoxicillin (AMOXIL) 500 mg capsule Take 500 mg by mouth every 8 hours. 04/07/2021 Active chlorhexidine (PERIDEX) 0.12% solution RINSE FOR 30 SECONDS WITH A HALF OUNCE (15ml) TWICE DAILY, SPIT OUT -- DO NOT SWALLOW. 04/07/2021 Active diclofenac (VOLTAREN) 1% gel SMARTSI Gram(s) Topical 3 Times Daily 05/12/2021 Active ibuprofen (MOTRIN) 400 mg tablet Take 400 mg by mouth every 6 hours as needed. 11/01/2021 Active ketorolac (TORADOL) 30 mg/mL (1 mL) injection SMARTSI Milliliter(s ) IM Once 05/12/2021 Active venlafaxine XR (EFFEXOR XR) 37.5 mg capsule Take 75 mg by mouth once a day. 11/01/2021 Active Active Problems No known active problems Social History Tobacco Use Types Packs/Day Years Used Date Smoking Tobacco: Never Smokeless Tobacco: Never Comments Unknown Sex and Gender Information Value Date Recorded Sex Assigned at Not on file Legal Sex Female 3:58 PM EDT Gender Identity Not on file Sexual Orientation Not on file Last Filed Vital Signs Vital Sign Reading Time Taken Comments Blood Pressure 138/84 09/29/2021 9:51 AM EDT Pulse 76 09/29/2021 9:51 AM EDT Temperature 36.6 C (97.9 F) 09/29/2021 9:25 AM EDT Respiratory Rate - - Oxygen Saturation 99% 09/29/2021 9:51 AM EDT Inhaled Oxygen Concentration - - Weight - - Height - - Body Mass Index - - Plan of Treatment Scheduled Procedures Name Priority Associated Diagnoses Date/Ti me COLONOSCOPY SCREENING, LOW R ISK WITH POSSIBLE MODERATE SEDATION Screening for colon cancer Health Maintenance Due Date Last Done Comments Cologuard 1965 Colon Cancer Screening 1967 Colonoscopy 1967 FOBT / Fit Test 1967 HIV Screening 1967 Sigmoidoscopy 1967 Hepatitis B Vaccines (1 of 3 - 19+ 3-dose series) 10/23/1986 DTaP,Tdap,and Td Vaccines (1 - Tdap) 10/23/1989 Pneumococcal Vaccine: 50+ Ye ars (1 of 1 - PCV) 10/23/2017 Zoster Vaccines (1 of 2) 10/23/2017 Alcohol/Substance Use Screening 06/26/2024 COVID-19 Vaccine (3 - 2024- season) 02/24/202501/2021, 04/12/2021 Influenza Vaccine (#1) 2025 RSV Vaccine (60+ years old a nd patients) (1 - 1-dose 75+ series) 10/23/2042 Insurance [facility] HSNO/FREE CARE Care Teams Edging Machine Catcher Relationship Specialty Start Date End Date Rose Sheth [address] [place] [address] PCP - General 09/15/21
--- OUTSIDE RECORDS SUMMARY | 2025-02-26 18:39 | XMS_ITS | Encounter Summary ---
Author Organization [employer] Address [address] [place] [address] 7[address] [place] [address] Care Team Providers Care Jack Winder Name Role Phone [facility] Primary Care Provider [phone] Reason for Visit * Reason Onset Date Comments Referral 10/28/2022 Encounter Details Date Type Department Care Team ([facility] st Contact Info) Description 10/28/2022 Telephone [facility] [address] [place], [place] [phone] [facility] [address] [place] [address] Referral Social History Tobacco Use Types Packs/Day Years Used Date Smoking Tobacco: Never Smokeless Tobacco: Never Comments Unknown Sex and Gender Information Value Date Recorded Sex Assigned at Female 04/25/2022 10:39 AM EDT Legal Sex Female 10:39 AM EDT Gender Identity Female 04/25/2022 10:39 AM EDT Sexual Orientation Straight 04/25/2022 10 :39 AM EDT COVID-19 Exposure Response Date Recorded In the last 10 days, have yo u been in contact with someone who was confirmed or suspected to have Coronavirus/COVID-19? No / Unsure 10/03/2022 12:46 PM EDT documented as of this encounter Miscellaneous Notes * Telephone Encounter - Jennifer Winters RN - 11/01/2022 12:08 PM EDT Returned call to pt regarding message below. Pt denies any issues with her eyes that would warrant urgent appt and that her eyeglasses broke and needs a new routine eye exam. Pt informed of wait times for appt and advised if pt finds a different location that takes pt insurance for a sooner appt, to call office to redirect referral. Pt agrees with plan. * Telephone Encounter - Sarita Ayala Aguilar - 10/28/2022 2:10 PM EDT Tc from pt requesting referral for the vision Center Please contact pt at [phone] documented in this encounter Plan of Treatment Upcoming Encounters Date Type Department Care Team (Late st Contact Info) Description 04/16/2025 2:30 PM EDT Office Visit [facility] [address] [place] [address] Tamir, Minerva, OD [address] [place] [address] documented as of this encounter Visit Diagnoses Not on filedocumented in this encounter Care Teams Jack Winder Relationship Specialty Start Date End Date Gladys Hernandez FNP [address] [place] [address] PCP - General Family Medicine 02/17/22 documented as of this encounter
--- OUTSIDE RECORDS SUMMARY | 2025-02-26 18:39 | XMS_ITS | Clinical Summary ---
Author Organization [employer] Address [address] [place] [address] 7t [place] [address] Care Team Providers Care Preparation Center Coordinator Name Role Phone Gladys Hernandez [facility] Primary Care Provider [phone] Allergies Active Allergy Reactions Criticality Noted Date Comments Shellfish-Derived Products Angioedema High 2 THROAT SWELLING/EYE SWELLING Medications ibuprofen 400 MG tablet TAKE 1 TABLET BY MOUTH EVERY 6 HOURS NEEDED 06/02/2022 Active estradiol-noret hindrone (Combipatch) 0.05-0.14 MG/DAYIndicatio ns:Vasomotor symptoms due to menopause Place 1 patch on the skin 2 (two) times a week. 8 patch 11 06/06/2024 5 Active cyclobenzaprine (Flexeril) 5 MG tabletIndicatio ns:Muscle spasm Take 1 tablet (5 mg) by mouth if needed in the morning, at noon, and at bedtime for muscle spasms. 30 tablet 1 06/05/2024 Active Active Problems Problem Noted Date Diagnosed Date History of back surgery 10/03/2022 Overview (10/03/2022): She had l5-s1 spondylolisthesis causing low back pain with left leg radiculopathy. Patient had l5-s1 fusion at [facility] 09/05/2022 Cobalamin deficiency 08/08/2021 Vasomotor symptoms due to menopause 08/08/2021 Pain in the coccyx 08/08/2021 Family History Medical History Relation Name Comments Alzheimer's disease Father Heart disease Father Diabetes type II Mother Relation Name Status Comments Father Mother Social History Tobacco Use Types Packs/Day Years Used Date Smoking Tobacco: Never Smokeless Tobacco: Never Tobacco Cessation:Counseling Given: Not Answered Alcohol Use Standard Drinks/Week Comments Never 0 [...] Orientation Straight 04/25/2022 10 :39 AM EDT Last Filed Vital Signs Vital Sign Reading Time Taken Comments Blood Pressure 135/95 06/05/2024 12:01 PM EST Pulse 83 06/05/2024 12:01 PM EST Temperature 36.4 C (97.5 F) 06/05/2024 12:01 PM EST Respiratory Rate 18 06/05/2024 12:01 PM EST Oxygen Saturation 99% 06/05/2024 12:01 PM EST Inhaled Oxygen Concentration - - Weight 65 kg (143 lb 6.4 oz) 06/05/2024 12:01 PM EST Height 160 cm (5' 3 ) 06/05/2024 12:01 PM EST Body Mass Index 25.4 06/05/2024 12:01 PM EST Plan of Treatment Upcoming Encounters Date Type Department Care Team (Late st Contact Info) Description 04/16/2025 2:30 PM EDT Office Visit [facility] [address] [place] [address] Minerva Garnett, OD [address] [place] [address] Health Maintenance Due Date Last Done Comments CT Colonography 1967 Colonoscopy 1967 Colorectal Cancer Screening 1967 FIT DNA/Cologuard 1967 FIT 1967 FOBT 1967 Sigmoidoscopy 1967 Disability Screening 1967 DTaP/Tdap/Td Vaccines (1 - Tdap) 10/23/1986 Hepatitis B Vaccines (1 of 3 - 19+ 3-dose series) 10/23/1986 Pneumococcal Vaccine: 50+ Years (1 of 1 - PCV) 10/23/2017 Zoster Vaccines (1 of 2) 10/23/2017 COVID-19 Vaccine (3 - 2023-2 5 season) 2024 05/03/2021, 04/12/2021 Influenza Vaccine (#1) 2025 Alcohol/Substance Use Screening 03/06/2025 03/06/2024 Depression Screening 03/06/2025 03/06/2024, 03/06/2024 SDOH Screening 03/06/2025 03/06/2024 Mammogram 04/24/2025 04/24/2024 Tobacco Screening 06/06/2025 06/06/2024 Cervical Cancer Screening 06/05/2027 Pap Smear 06/05/2027 06/05/2024 HPV/Cotest 06/05/2029 06/05/2024 RSV Patients and Patients Aged 60 years or older (1 - 1-dose 75+ series) 10/23/2042 HIV Screening Completed 03/06/2024, 08/31/2021 Hepatitis C Screening Completed 03/06/2024 , 08/31/2021 HIB Vaccines Aged Out No longer eligi [...] patient's age to complete this topic Meningococcal Vaccine Aged Out No rosario nathan eligible based on patient's age to complete this topic RSV under 20 months Aged Out No longe r eligible based on patient's age to complete this topic Rotavirus Vaccines Aged Out No longer eligible based on patient's age to complete this topic Procedures Procedure Name Priority Date/Time Associated Diagnosis Comments PAP SMEAR Routine 06/05/2024 12:21 PM EST Pap smear for cervical cancer screening HPV MRNA E6/E7 REFLEX TO HPV 16, 18/45 Routine 06/05/2024 12:00 AM EST BI MAMMOGRAM SCREENING TOMOSYNTHESIS BILATERAL Routine 04/24/2024 11:22 AM EDT Screening mammogram for breast cancer HEPATITIS C AB W/REFL TO HCV RNA, QN, PCR Routine 03/06/2024 10:33 AM EDT Screening mammogram for breast cancer HIV 1/2 ANTIGEN/ANTIBODY, FOURTH GENERATION W/RFL Routine 03/06/2024 10:33 AM EDT Screening mammogram for breast cancer from Last 3 Months or Most Recently Relevant to Health Maintenance Results * Pap Smear (06/05/2024 12:21 PM EST) Swab Cervix uteri structure / Unknown 06/05/2024 12:21 PM EST 06/06/2024 9:00 AM EST [facility] - 06/11/2024 10:02 AM EST ----- ------- Name: Cassie West Age/Sex: 58/F : 1965 Unit#: [id number] Attend Dr: Gladys HernandezP Re06/05/24 Status: DEP REF Location: [facility] Disch: ----- ------- SPEC : [id number] RECD: 06/06/24 STATUS: CINDY TREVINO NUM: [id number] GABRIELLE: 06/05/24-1221 [facility] DR: Gladys Hernandez [facility] ENTERED: 06/06/24 SP TYPE: Pap Smr OTHR : ORDERED: Pap Smear Interpretation Satisfactory for evaluation. Negative for intraepithelial lesion or malignancy. No endocervical cells seen. HPV High Risk: Negative HPV Genotyping 16: Negative HPV Genotyping 18: Negative Clinical Information LMP: Postmenopausal Previous PAP test: Unknown date/findings Material Received ThinPrep-Cervical ----- ------- Signed (signature on file) WENDY Pratt (ASCP) 06/11/24 1002 ----- ------- END OF REPORT [facility] LAB CYTOLOGY ORDERABLES Final Result [facility] [address] [place] [phone] * HPV mRNA E6/E7 w/Reflex to HPV Genotypes 16, 18/45 (06/05/2024 12:00 AM EST) [facility] Provider MD LAB CYTOLOGY ORDERABLES F inal Result * BI Mammogram Screening Tomosynthesis Bilateral (04/24/2024 11:22 AM EDT) Anatomical Region Laterality Modality Breast Bilateral Mammography 04/24/2024 11:2 2 AM EDT Narrative 05/03/2024 9:38 AM EST [address] [place] [address] Mammography Report Signed Patient: Cassie West MR#: [id number] : 1965 Acct:[id number] Age/Sex: 58 / F ADM Date: 04/24/24 Loc: HO.MAMMO Attending Dr: Gladys DUKEP Ordering Physician: Gladys Hernandez Results: 1Nega tive Date of Service: 04/24/24 Follow Up: 1 Year From Orig inal Mammogram Procedure(s): MM tomosynthesis screening BI Accession Number(s): [id number] cc: Gladys Hernandez [facility] EXAMINATION: MM SCREENING DIGITAL BREAST TOMOSYNTHESIS, BILATERAL CLINICAL INFORMATION: Screening. Asymptomatic. COMPARISON: Mammography: Baseline. TECHNIQUE: Digital breast mammography with tomosynthesis is performed in both the craniocaudal and mediolateral oblique views along with computer-aided detection (CAD). FINDINGS: The breasts are heterogeneously dense, which may obscure small masses (ACR BI-RADS breast composition Category c). There are no significant masses, abnormal calcifications, or other abnormalities. MM/MM tomosynthesis screening BI IMPRESSION: No mammographic evidence of malignancy. ASSESSMENT: BI-RADS BI-RADS 1 - Negative RECOMMENDATION: Routine annual mammography screening. 1 year F/U This examination should not preclude the clinical evaluation of a suspicious palpable abnormality. This patient's information was entered into a reminder system with a target due date for their next mammogram. Electronically signed by: Mayra Reyez DO 05/03/2024 09:35 AM EST Dictated By: Mayra Reyez DO Signed By: <Electronically signed by Mayra Reyez DO in OV> 05/03/24 0935 DD/ 1122 TD/TT: 04/24/24 1137 Warp Coiler: Procedure Note Donotuseinterpreter, Image - 05/03/2024 [facility] [address] [place], [place] [address] Mammography Report Signed Patient: Cassie West LMR#: [id number] : 1965Acct:[id number] Age/Sex: 58 / FADM Date: 04/24/24 Loc: HO.MAMMO Attending Dr: Gladys Hernandez FLORAL ASSISTANT Ordering Physician: Gladys Hernandez FNPResults: 1Nega tive Date of Service: 04/24/24Follow Up: 1 Year From Orig ina Mammogram Procedure(s): MM tomosynthesis screening BI Accession Number(s): [id number] cc: Gladys Hernandez FLORAL ASSISTANT EXAMINATION: MM SCREENING DIGITAL BREAST TOMOSYNTHESIS, BILATERAL CLINICAL INFORMATION: Screening. Asymptomatic. COMPARISON: Mammography: Baseline. TECHNIQUE: Digital breast mammography with tomosynthesis is performed in both the craniocaudal and mediolateral oblique views along with computer-aided detection (CAD). FINDINGS: The breasts are heterogeneously dense, which may obscure small masses (ACR BI-RADS breast composition Category c). There are no significant masses, abnormal calcifications, or other abnormalities. MM/MM tomosynthesis screening BI IMPRESSION: No mammographic evidence of malignancy. ASSESSMENT: BI-RADS BI-RADS 1 - Negative RECOMMENDATION: Routine annual mammography screening. 1 year F/U This examination should not preclude the clinical evaluation of a suspicious palpable abnormality. This patient's information was entered into a reminder system with a target due date for their next mammogram. Electronically signed by: Mayra Reyez DO 05/03/2024 09:35 AM EST RP Dictated By: Mayra Reyez DO Signed By: <Electronically signed by Mayra Reyez DO in OV> 05/03/24 0935 DD/ 1122 TD/TT: 04/24/24 1137 Warp Coiler: [facility] BI PROCEDURES Final Resul t * Hepatitis C Antibody with Reflex to HCV, RNA, Quantitative, Real-Time PCR (03/06/2024 10:33 AM EDT) Hepatitis C Antibody Nonreactive Nonreactive [facility] Comment:Antibodies to HCV no t detected; does not exclude early acuteHCV infection. Blood Venous blood specimen / Unknown 03/06/2024 10:33 AM EDT 03/06/2024 11:21 AM EDT [facility] LAB BLOOD ORDERABLES Final Re sult [facility] [address] [place] [phone] * HIV-1/2 Antigen and Antibodies, Fourth Generation, with Reflexes (03/06/2024 10:33 AM EDT) HIV AB/AG Nonreactive Nonreactive [facility] Comment:HIV-1 p24 Ag and/or HIV-1/HIV-2 Ab not detected.A test result that is nonreactive does not exclude thepossibility of exposure to or infection with HIV-1 and/orHIV-2. Nonreactive results in this assay for individualswith prior exposure to HIV-1 and/or HIV-2 may be due toantigen and antibody levels that are below the limit ofdetection of this assay.The [employer] HIV Ag/Ab Combo assay result andsupplemental assay results should be interpreted inconjunction with the patient's clinical presentation,history and other laboratory results. If the results areinconsistent with clinical evidence, additional testing issuggested to confirm the result. Blood Venous blood specimen / Unknown 03/06/2024 10:33 AM EDT 03/06/2024 11:21 AM EDT [facility] FLORAL ASSISTANT LAB BLOOD ORDERABLES Final Re sult [facility] [address] [place] [address] [phone] from Last 3 Months or Most Recently Relevant to Health Maintenance Insurance [facility] F[facility] [employer] [facility] [facility] [employer] [facility] 1 Care Teams Preparation Center Coordinator Relationship Specialty Start Date End Date Gladys Hernandez FNP [address] [place] [phone] PCP - General Family Medicine 02/17/22
--- OUTSIDE RECORDS SUMMARY | 2025-02-26 18:39 | XMS_ITS | Clinical Summary ---
Author Organization [facility] Address [address] [place] [address] Care Team Providers Care International Flight Attendant Name Role Phone Unavailable Primary Care Provider Unavailabl e Source Comments PLEASE NOTE, if this patient is a minor, it may be UNLAWFUL to discuss sensitive information that is contained in these records (such as FAMILY PLANNING, MENTAL HEALTH or SUBSTANCE ABUSE) with the minor patient's parent or other person without the patient's specific authorization.[facility] Medications No known medications Active Problems No known active problems Encounters Date Type Department Care Team Description 02/05/2025 1:20 PM EDT Office Visit [address] [phone] Dimitri Baig RDH 01/22/2025 10:00 AM EDT Office Visit [address] [phone] Tricia Gross from Last 3 Months Social History Tobacco Use Types Packs/Day Years Used Date Smoking Tobacco: Never Smokeless Tobacco: Never Tobacco Cessation:Counseling Given: Not Answered Social Connections Answer Date Recorded Connectedness 0 03/22/2024 Financial Resource Strain Answer Date R ecorded Financial Resource Strain 0 2022 Stress Answer Date Recorded Stress 0 11/24/2022 Physical Activity Answer Date Recorded Physical Activity 0 11/24/2022 Food Insecurity Answer Date Recorded Food 0 03/21/2024 Transportation Needs Answer Date Record ed Transportation 0 11/24/2022 Housing Stability Answer Date Recorded Housing 0 11/24/2022 Safety and Environment Answer Date Domenic rded Safety 0 11/24/2022 Utilities Answer Date Recorded Utilities 0 11/24/2022 Employment Answer Date Recorded Stress 0 03/22/2024 Comments Unknown Sex and Gender Information Value Date Recorded Sex Assigned at Not on file Legal Sex Female 12:14 PM PDT Gender Identity Not on file Sexual Orientation Not on file Last Filed Vital Signs Vital Sign Reading Time Taken Comments Blood Pressure 113/75 01/22/2025 1:07 PM EDT Pulse 77 01/22/2025 1:07 PM EDT Temperature - - Respiratory Rate - - Oxygen Saturation - - Inhaled Oxygen Concentration - - Weight - - Height - - Body Mass Index - - Plan of Treatment Upcoming Encounters Date Type Department Care Team (Late st Contact Info) Description 03/17/2025 1:00 PM EDT Office Visit [facility] [address] [place] [address] Cassandra Larios, RHD [address] [place] [address] 04/04/2025 10:30 AM EDT Office Visit [facility] [address] [place] [address] Ole Whaley, DDS [address] [place] [address] Health Maintenance Due Date Last Done Comments Anxiety Screening 1965 HPV Screening 1965 Lipid Screening 1965 Pap + HPV 1965 Imm-DTaP/Tdap/Td (1 - Tdap) 10/23/1986 Imm-Hepatitis B (1 of 3 - 19 + 3-dose series) 10/23/1986 Cervical Cancer Screening 10/23/1988 Pap Smear 10/23/1988 Breast Cancer Screening (Mammogram) 2007 CT Colonography 10/23/2012 Colonoscopy 10/23/2012 Colorectal Cancer Screening 10/23/2012 FIT/gFOBT 10/23/2012 Fecal DNA 10/23/2012 Flexible Sigmoidoscopy 10/23/2012 Imm-Pneumococcal 50+ (1 of 1 - PCV) 10/23/2017 Imm-Zoster, Recombinant (1 of 2) 10/23/2017 Dental Perio Charting 02/20/2024 02/17/2023 Alcohol and Drug Screen 06/26/2024 Depression Annual Screen 06/26/2024 Dental BW 10/04/2024 10/03/2023, 02/16/2023 Dental Examination 10/04/2024 10/03/2023, 02/16/2023 Dental Prophy 10/04/2024 10/03/2023, 02/17/2023 [id number] ( season) 2025 Imm-Influenza (#1) 2025 Hypertension Screening (#1) 01/22/2026 Tobacco Screening 01/22/2026 01/22/2025 Diabetes Screening 03/06/2027 03/06/2024 Dental FMX/Pano 02/19/2028 02/16/2023 HIV Screening Completed 03/06/2024, 02/24, 08/31/2021 Hepatitis C Screening Completed 03/06/2024 Cervical Ablation/Cold-Knife Conization Discontinued Cervical Cryotherapy Discontinued Colposcopy Discontinued Endometrial Biopsy Discontinued Excision/Leep Discontinued HPV Genotyping Discontinued Vaginal Pap Discontinued Vulvoscopy Discontinued Procedures Procedure Name Priority Date/Time Associated Diagnosis Comments LIMITED ORAL EVALUATION - PROBLEM FOCUSED Routine 02/05/2025 1:20 PM EDT Pain, dental INTRAORAL - PERIAPICAL FIRST RADIOGRAPHIC IMAGE Routine 02/05/2025 1:20 PM EDT Pain, dental BITEWING - SINGLE RADIOGRAPHIC IMAGE Routine 02/05/2025 1:20 PM EDT Pain, dental CASE PRESENTATION SUBS DTL & EXTENSIVE TX PLN Routine 02/05/2025 1:20 PM EDT Pain, dental LIMITED ORAL EVALUATION - PROBLEM FOCUSED Routine 01/22/2025 10:00 AM EDT Caries INTRAORAL - PERIAPICAL FIRST RADIOGRAPHIC IMAGE Routine 01/22/2025 10:00 AM EDT [facility]ies CASE PRESENTATION SUBS DTL & EXTENSIVE TX PLN Routine 01/22/2025 10:00 AM EDT Caries BITEWINGS - FOUR RADIOGRAPHIC IMAGES Routine 10/03/2023 1:40 PM EDT Encounter for dental examination PROPHYLAXIS - ADULT Routine 10/03/2023 1 :40 PM EDT Encounter for dental examination PERIODIC ORAL EVALUATION ESTABLISHED PATIENT Routine 10/03/2023 1:40 PM EDT Encounter for dental examination INTRAORAL - COMP SERIES OF RADIOGRAPHIC IMAGES Routine 02/16/2023 1:40 PM EDT Caries Caries of enamel (incipient) Defective dental [facility] Encounter for dental examination from Last 3 Months or Most Recently Relevant to Health Maintenance Insurance [employer] [place] [address] OR MEDICAID DENTAL
--- OUTSIDE RECORDS SUMMARY | 2025-02-26 18:39 | XMS_ITS | Clinical Summary ---
Author Organization [facility] Address [address] [place] [address] Care Team Providers Care Power Screwdriver Operator Name Role Phone Abigail Ferguson RN Primary Care Provider [phone] Surgical History Surgery Date Site/Laterality Comments SECTION 1998 PROCEDURE: CA DELIVERY ONLY Medical History Medical History Date [...] 2) 10/23/2017 Colorectal Cancer Screening: Colonoscopy 05/23/2022 HIV Screening 05/23/2022 Hepatitis C Screening 05/23/2022 Social Influencers of Health Screening 05/23/2022 COVID-19 Vaccine (3 - 2023-2 5 season) 2024 05/03/2021, 04/12/2021 Depression Screening 06/26/2024 Influenza Vaccine (#1) 2025 HIB Vaccines Aged Out No longer [...] age to complete this topic Care Teams Power Screwdriver Operator Relationship Specialty Start Date End Date Abigail Ferguson RN [address] [place] [phone] PCP - General 05/10/22
--- OUTSIDE RECORDS SUMMARY | 2025-02-26 18:39 | XMS_ITS | Encounter Summary ---
Author Organization [employer] Address [address] [place] [address] 7 [place] [address] Care Team Providers Care Senior Manager Quality Assurance Name Role Phone [facility] [place] Primary Care Provider [phone] Reason for Visit * Reason Onset Date Comments Appointment Request 04/24/2024 Encounter Details Date Type Department Care Team ([facility] Contact Info) Description 04/24/2024 Telephone [facility] [address] [place], [place] [phone] [employer] [address] [place] [address] Appointment Request Social History Tobacco Use Types [...] encounter Miscellaneous Notes * Telephone Encounter - Riccardo Singh - 04/24/2024 9:16 AM EDT Tc from pt calling in regards to letter received to schedule pap smear. Pt states her daughter takes her to her appts and her only days off are Monday. [employer] attempted to schedule pap smear but found no availability. Please contact pt at [phone]. (Danish Speaker) documented in this encounter Plan of Treatment Upcoming Encounters Date Type Department Care Team (Late st Contact Info) Description 04/16/2025 2:30 PM EDT Office Visit [facility] [address] [place] [address] Tamir, Minerva, OD [address] [place] [address] documented as of this encounter Visit Diagnoses Not on filedocumented in this encounter Additional Health Concerns Assessment Noted Time PHQ-9 Depression Total Score: 0 03/06/20 24 9:16 AM EDT documented as of this encounter Care Teams Senior Manager Quality Assurance Relationship Specialty Start Date End Date Gladys Hernandez FNP [address] [place] [address] PCP - General Family Medicine 02/17/22 documented as of this encounter
== END 2025-02-26 18:22 | disposition home or self-care (01) ==
LOC: HO.MRI 18:21
PROVIDERS: Visit Provider Physician Assistant
DX: M54.50 Low back pain, unspecified (principal)
CPT/HCPCS: 72148

== ENCOUNTER → 2025-02-26 18:43 | Outpatient (BNV) | payer OTHER, SELFPAY | PROVIDERS: Visit Provider Radiology Diagnostic Radiology | DX: M48.061 Spinal stenosis, lumbar region without neurogenic claudication (principal) | CPT/HCPCS: 72148 ==

== ENCOUNTER 2025-03-19 12:57 | Outpatient (AMB) | payer OTHER, SELFPAY ==
--- NOTE | 2025-03-19 13:05 | HO.SPINEOV ---
Vital Signs 03/19/25 13:14 Height 5 ft 2 in Weight 140 lb BMI 25.6 Intake Visit Reasons: discuss possible surgical intervention Intake Note: Ms. Rojelio Benz is here today to Discuss Surgery. Synthetic Resin Operator Required: Yes Synthetic Resin Operator Language: Plastic Extruding Machine Operator Services: Synthetic Resin Operator Present Synthetic Resin Operator Name: Oneal (Daughter) Allergies No Known Allergies Allergy (Verified 03/19/25 13:06) Physical Exam Vital Signs: BMI result Body Mass Index 25.6 Assessment & Plan Assessment & Plan (1) Status post lumbar spinal arthrodesis: Code(s): Z98.1 - Arthrodesis status Category: Medical Plan Dear colleague, On , two twenty five, I saw for follow-up Cassie Benz for return of low back pain. As you know she underwent an L5-S1 fusion 3 years ago with good results. More recently, she started to complain again of a pain that radiates across the lumbar spine and can radiate down the posterior thighs and calves with the left side is more affected than the right side. The back pain is worse than the leg pains. There is no relationship between the leg symptoms and walking or standing. I reviewed an MRI of the lumbar spine which shows status post L5-S1 lumbar fusion and central L5-S1 stenosis and bilateral L5 foraminal stenosis, which is similar to a prior MRI of the lumbar spine. She states that lidocaine patches alleviate the symptoms. We will refill a script for the lidocaine patches but I told her to then go to the primary care physician office for refill. I will also order an CT of the lumbar spine to assess fusion of the L5-S1 segment. I spent 20 minutes in his consult to review imaging and discussing plan of care. Thank you for allowing me take care of your patient. Lux Fuller MD, PhD Spine Fellowship Trained Neurosurgeon Director, [facility] Orders: Orders CT lumbar spine wo IV con Today M54.50 - Low back pain, unspecified, Z98.1 - Arthrodesis status Medications: Refilled lidocaine 5% leave on most painful area for up to 12 hrs 1 patch topical DAILY 30 ea 0RF low back pain Coding Level of Care Code Est Pt Level 3 (55186) Diagnoses Status post lumbar spinal arthrodesis Z98.1
[2025-03-19 13:14] VITALS: BMI 25.6
--- OUTSIDE RECORDS SUMMARY | 2025-03-19 15:25 | XMS_ITS | Clinical Summary ---
Author Organization [employer] Address [address] [place] [address] 7t [place] [address] Care Team Providers Care Social Service Director Name Role Phone Gladys Hernandez [facility] Primary Care Provider [phone] Allergies Active Allergy Reactions Criticality Noted Date [...] leg radiculopathy. Patient had l5-s1 fusion at [facility] 09/05/2022 Cobalamin deficiency 08/08/2021 Vasomotor symptoms [...] Description 04/16/2025 2:30 PM EDT Office Visit [facility] OPTOMETRY [address] [place] [address] Minerva Garnett, OD [address] [place] [address] Health Maintenance Due Date Last Done Comments CT Colonography 1965 Colonoscopy 1965 Colorectal Cancer Screening 1967 FIT DNA/Cologuard 1967 FIT 1967 FOBT 1967 Sigmoidoscopy 1965 Disability Screening 1967 Alcohol/Substance Use Screening 1979 DTaP/Tdap/Td Vaccines (1 - Tdap) 10/23/1986 Hepatitis B Vaccines (1 of 3 - 19+ 3-dose series) 10/23/1986 Pneumococcal Vaccine: 50+ Years (1 of 1 - PCV) 10/23/2017 Zoster Vaccines (1 of 2) 10/23/2017 COVID-19 Vaccine (3 - 2024-2 6 season) 2025 05/03/2021, 04/12/2021 Influenza Vaccine (#1) 2025 Depression Screening 03/06/2025 03/06/2024, 03/06/2024 SDOH Screening [...] 12:21 PM EST 06/06/2024 9:00 AM EST [facility] LABS - 06/11/2024 10:02 AM EST ----- ------- Name: Cassie West Age/Sex: 58/F : 1965 Unit#: [id number] Attend Dr: Gladys Hernandez Re06/05/24 Status: [facility] REF Location: [facility] Disch: ----- ------- SPEC : [id number] RECD: 06/06/24 STATUS: CINDY TREVINO NUM: [id number] GABRIELLE: 06/05/24-1221 [facility] DR: Gladys Hernandez [facility] ENTERED: 06/06/24 SP TYPE: Pap Smr OT DR: ORDERED: Pap Smear Interpretation Satisfactory for evaluation. Negative for intraepithelial lesion or malignancy. No endocervical cells seen. HPV High Risk: Negative HPV Genotyping 16: Negative HPV Genotyping 18: Negative Clinical Information LMP: Postmenopausal Previous PAP test: Unknown date/findings Material Received ThinPrep-Cervical ----- ------- Signed (signature on file) WENDY Pratt (ASCP) 06/11/24 1002 ----- ------- END OF REPORT [facility] LAB CYTOLOGY ORDERABLES Final Result [facility] [address] [place] [phone] * HPV mRNA E6/E7 w/Reflex to HPV Genotypes 16, 18/45 (06/05/2024 12:00 AM EST) [facility] Provider MD LAB CYTOLOGY ORDERABLES F inal Result * BI Mammogram Screening Tomosynthesis Bilateral (04/24/2024 11:22 AM EDT) Anatomical Region Laterality Modality Breast Bilateral Mammography 04/24/2024 11:2 2 AM EDT Narrative 05/03/2024 9:38 AM EST [address] [place] [address] Mammography Report Signed Patient: Cassie West MR#: [id number] : 1965 Acct:[id number] Age/Sex: 58 / F ADM Date: 04/24/24 Loc: MAMMO Attending Dr: Gladys Hernandez [facility] Ordering Physician: Gladys Hernandez Results: 1Nega tive Date of Service: 04/24/24 Follow Up: 1 Year From Orig inal Mammogram Procedure(s): MM tomosynthesis screening BI Accession Number(s): [id number] cc: Gladys Hernandez [facility] EXAMINATION: MM SCREENING DIGITAL BREAST TOMOSYNTHESIS, BILATERAL [...] 05/03/24 0935 DD/ 1122 TD/TT: 04/24/24 1137 Loss Prevention Consultant: Procedure Note Donotuseinterpreter, Image - 05/03/2024 [facility] [address] [place] [address] Mammography Report Signed Patient: Cassie West LMR#: [id number] : 1965Acct:[id number] Age/Sex: 58 / FADM Date: 04/24/24 Loc: HO.MAMMO Attending Dr: Gladys Hernandez LOSS CONTROL REPRESENTATIVE Ordering Physician: Gladys Hernandez FNPResults: 1Nega tive Date of Service: 04/24/24Follow Up: 1 Year From Orig ina Mammogram Procedure(s): MM tomosynthesis screening BI Accession Number(s): [id number] cc: Gladys Hernandez LOSS CONTROL REPRESENTATIVE EXAMINATION: MM SCREENING DIGITAL BREAST TOMOSYNTHESIS, BILATERAL [...] 05/03/24 0935 DD/ 1122 TD/TT: 04/24/24 1137 Loss Prevention Consultant: [facility] IMG BI PROCEDURES Final Resul t * Hepatitis C Antibody with Reflex to HCV, RNA, Quantitative, Real-Time PCR (03/06/2024 10:33 AM EDT) Hepatitis C Antibody Nonreactive Nonreactive [facility] Comment:Antibodies to HCV no t detected; does not exclude early acuteHCV infection. Blood Venous blood specimen / Unknown 03/06/2024 10:33 AM EDT 03/06/2024 11:21 AM EDT [facility] LAB BLOOD ORDERABLES Final Re sult [facility] [address] [place] [phone] * HIV-1/2 Antigen and Antibodies, Fourth Generation, with Reflexes (03/06/2024 10:33 AM EDT) HIV AB/AG Nonreactive Nonreactive [facility] Comment:HIV-1 p24 Ag and/or HIV-1/HIV-2 Ab not detected.A test result that is nonreactive does not exclude thepossibility of exposure to or infection with HIV-1 and/orHIV-2. Nonreactive results in this assay for individualswith prior exposure to HIV-1 and/or HIV-2 may be due toantigen and antibody levels that are below the limit ofdetection of this assay.The [facility] HIV Ag/Ab Combo assay result andsupplemental assay results should be interpreted inconjunction with the patient's clinical presentation,history and other laboratory results. If the results areinconsistent with clinical evidence, additional testing issuggested to confirm the result. Blood Venous blood specimen / Unknown 03/06/2024 10:33 AM EDT 03/06/2024 11:21 AM EDT [facility] LOSS CONTROL REPRESENTATIVE LAB BLOOD ORDERABLES Final Re sult [facility] [address] [place] [address] [phone] from Last 3 Months or Most Recently Relevant to Health Maintenance Insurance [facility] [employer] [facility] [employer] [facility] 1 Care Teams Social Service Director Relationship Specialty Start Date End Date Gladys Hernandez FNP [address] [place] [phone] PCP - General Family Medicine 02/17/22
--- OUTSIDE RECORDS SUMMARY | 2025-03-19 15:25 | XMS_ITS | Encounter Summary ---
Author Organization [employer] Address [address] [place] [address] 7t [place] [address] Care Team Providers Care Brazer Furnace Name Role Phone [facility] Primary Care Provider [phone] Reason for Visit * Reason Onset Date Comments Referral 10/28/2022 Encounter Details Date Type Department Care Team ([facility] st Contact Info) Description 10/28/2022 Telephone [facility] MEDICINE [address] [place], [place] [phone] [facility] [address] [place] [address] Referral Social History Tobacco Use Types Packs/Day [...] the vision Center Please contact pt at [phone] documented in this encounter Plan of Treatment Upcoming Encounters Date Type Department Care Team (Late st Contact Info) Description 04/16/2025 2:30 PM EDT Office Visit [facility] OPTOMETRY [address] [place] [address] Tamir, Minerva, OD [address] [place] [address] documented as of this encounter Visit Diagnoses Not on filedocumented in this encounter Care Teams Brazer Furnace Relationship Specialty Start Date End Date Gladys Hernandez FNP [address] [place] [address] PCP - General Family Medicine 02/17/22 documented as of this encounter
--- OUTSIDE RECORDS SUMMARY | 2025-03-19 15:25 | XMS_ITS | Encounter Summary ---
Author Organization [employer] Address [address] [facility] 7t [place] [address] Care Team Providers Care Linux Support Engineer Name Role Phone Gladys Hernandez COATING TECHNICIAN Primary Care Provider [phone] Encounter Details Date Type Department Care Team ([facility] st Contact Info) Description 05/23/2023 Abstract [facility] MEDICINE [address] [place] [address] Carolyn Forte Social History Tobacco Use Types [...] Description 04/16/2025 2:30 PM EDT Office Visit [facility] OPTOMETRY [address] [place], [place] [phone] Tamir, Minerva, OD [address] [place] [address] documented as of this encounter Visit Diagnoses Not on filedocumented in this encounter Additional Health Concerns Assessment Noted Time PHQ-9 Depression Total Score: 0 11/25/19 23 9:46 AM EDT documented as of this encounter Care Teams Linux Support Engineer Relationship Specialty Start Date End Date Gladys Hernandez FNP [address] [place] [address] PCP - General Family Medicine 02/17/22 documented as of this encounter
--- OUTSIDE RECORDS SUMMARY | 2025-03-19 15:25 | XMS_ITS | Clinical Summary ---
Author Organization [facility] Address [address] [place] [address] Care Team Providers Care Process Artist Name Role Phone Unavailable Primary Care Provider [...] Description 02/05/2025 1:20 PM EDT Office Visit [address] [phone] Dimitri Baig RDH 01/22/2025 10:00 AM EDT Office Visit [address] [phone] Tricia Gross from Last 3 Months Social [...] Care Team (Late st Contact Info) Description 04/04/2025 10:30 AM EDT Office Visit [facility] [address] [place] [phone] Ole Whaley, [address] [place] [address] 04/08/2025 1:00 PM EDT Office Visit [facility] [address] [place] [phone] Ole Whaley [address] [place] [address] Health Maintenance Due Date Last Done Comments [...] 10/03/2023, 02/16/2023 Dental Prophy 10/04/2024 10/03/2023, 02/17/2023 [id number] ( season) 2025 Imm-Influenza (#1) 2025 Hypertension [...] Caries Caries of enamel (incipient) Defective dental gnosticism Encounter for dental examination from Last 3 Months or Most Recently Relevant to Health Maintenance Insurance [employer]AF[employer] NET DENTAL MEDICAID DENTAL
--- OUTSIDE RECORDS SUMMARY | 2025-03-19 15:25 | XMS_ITS | Encounter Summary ---
Author Organization [employer] Address [address] [place] [address] 7 [place] [address] Care Team Providers Care Power Lineman Name Role Phone [facility] Primary Care Provider [phone] Reason for Visit * Reason Onset Date Comments Appointment Request 04/24/2024 Encounter Details Date Type Department Care Team ([facility] Contact Info) Description 04/24/2024 Telephone [facility] MEDICINE [address] [place], [place] [phone] [facility] [address] [place] [address] Appointment Request Social History Tobacco Use Types [...] and her only days off are Monday. Recycling Center Operator attempted to schedule pap smear but found no availability. Please contact pt at [phone]. (Mongolian Speaker) documented in this encounter Plan of Treatment Upcoming Encounters Date Type Department Care Team (Late st Contact Info) Description 04/16/2025 2:30 PM EDT Office Visit [facility] OPTOMETRY [address] [place] [address] Tamir, Minerva, OD [address] [place] [address] documented as of this encounter Visit Diagnoses Not on filedocumented in this encounter Additional Health Concerns Assessment Noted Time PHQ-9 Depression Total Score: 0 03/06/20 24 9:16 AM EDT documented as of this encounter Care Teams Power Lineman Relationship Specialty Start Date End Date Gladys Hernandez FNP [address] [place] [address] PCP - General Family Medicine 02/17/22 documented as of this encounter
--- OUTSIDE RECORDS SUMMARY | 2025-03-19 15:25 | XMS_ITS | Encounter Summary ---
Author Organization [employer] Address [address] [place] [address] 7 [place] [address] Care Team Providers Care Aged Or Disabled Care Worker Name Role Phone [facility] Primary Care Provider [phone] Reason for Visit * Reason Onset Date Comments Referral 06/27/2023 Encounter Details Date Type Department Care Team ([facility] Contact Info) Description 06/27/2023 Telephone [facility] MEDICINE [address] [place], [place] [phone] [facility] [address] [place] [address] Referral Social History Tobacco Use Types Packs/Day [...] second opinion . Please contact daughter @ [phone] documented in this encounter Plan of Treatment Upcoming Encounters Date Type Department Care Team (Late st Contact Info) Description 04/16/2025 2:30 PM EDT Office Visit [facility] OPTOMETRY [address] [place] [address] Minerva Garnett, OD [address] [place] [address] documented as of this encounter Visit Diagnoses Not on filedocumented in this encounter Additional Health Concerns Assessment Noted Time PHQ-9 Depression Total Score: 0 11/25/19 23 9:46 AM EDT documented as of this encounter Care Teams Aged Or Disabled Care Worker Relationship Specialty Start Date End Date Gladys Hernandez FNP [address] [place] [address] PCP - General Family Medicine 02/17/22 documented as of this encounter
--- OUTSIDE RECORDS SUMMARY | 2025-03-19 15:25 | XMS_ITS | Clinical Summary ---
Author Organization [facility] Address [address] [place] [address] Care Team Providers Care Cafeteria Team Leader Name Role Phone MerylRose Primary Care Provider [phone] Allergies Active Allergy Reactions Criticality Noted Date [...] (1 - 1-dose 75+ series) 10/23/2042 Insurance [facility] HSNO/FREE CARE Care Teams Cafeteria Team Leader Relationship Specialty Start Date End Date Rose Sheth [address] [place] [address] PCP - General 09/15/21
--- OUTSIDE RECORDS SUMMARY | 2025-03-19 15:25 | XMS_ITS | Clinical Summary ---
Author Organization [facility] [employer] [facility] ity Address [address] [place] [address] Care Team Providers Care Second Crusher Name Role Phone Abigail Ferguson RN Primary Care Provider [phone] Surgical History Surgery Date Site/Laterality Comments SECTION 1998 PROCEDURE: [place] DELIVERY ONLY Medical History Medical History Date [...] 05/23/2022 Social Influencers of Health Screening 05/23/2022 Depression Screening 06/26/2024 COVID-19 Vaccine (3 - 2024-2 6 season) 2025 05/03/2021, 04/12/2021 Influenza Vaccine (#1) 2025 HIB Vaccines Aged [...] age to complete this topic Care Teams Second Crusher Relationship Specialty Start Date End Date Abigail Ferguson RN [address] [place] [phone] PCP - General 05/10/22
--- OUTSIDE RECORDS SUMMARY | 2025-03-19 15:25 | XMS_ITS | Encounter Summary ---
Author Organization [employer] Address [address] [facility] 7t [place] [address] Care Team Providers Care Piccolo Mechanic Name Role Phone Gladys Hernandez MAINTENANCE LEADER Primary Care Provider [phone] Encounter Details Date Type Department Care Team ([facility] st Contact Info) Description 10/22/2024 Orders Only [facility] CHC MED & PEDS [address] [place], [place] [phone] Carolyn Forte Social History Tobacco Use Types [...] Description 04/16/2025 2:30 PM EDT Office Visit [facility] OPTOMETRY [address] [place], [place] [phone] Minerva Garnett, OD [address] [place] [address] documented as of this encounter Procedures Procedure [...] documented as of this encounter Care Teams Piccolo Mechanic Relationship Specialty Start Date End Date Gladys Hernandez FNP [address] [place] [address] PCP - General Family Medicine 02/17/22 documented as of this encounter
--- OUTSIDE RECORDS SUMMARY | 2025-03-19 15:25 | XMS_ITS | Encounter Summary ---
Author Organization [employer] Address [address] [place] [address] [address] [place] [address] Care Team Providers Care Clinical Documentation Manager Name Role Phone [employer] Primary Care Provider [phone] Reason for Visit * Reason Onset Date Comments Appointment Request 12/27/2023 Encounter Details Date Type Department Care Team ([facility] Contact Info) Description 12/27/2023 Telephone [facility] MEDICINE [address] [place], [place] [phone] [facility] [address] [place] [address] Appointment Request Social History Tobacco Use Types [...] 04/16/2025 2:30 PM EDT Office Visit [facility] OPTOMETRY [address] [place] [address] Minerva Garnett, ERIC [address] [place] [address] documented as of this encounter Visit Diagnoses Not on filedocumented in this encounter Additional Health Concerns Assessment Noted Time PHQ-9 Depression Total Score: 0 11/25/19 23 9:46 AM EDT documented as of this encounter Care Teams Clinical Documentation Manager Relationship Specialty Start Date End Date Gladys Hernandez FNP [address] [place] [address] PCP - General Family Medicine 02/17/22 documented as of this encounter
== END 2025-03-19 13:25 | disposition home or self-care (01) ==
LOC: HO.HNS 12:58
PROVIDERS: Visit Provider Neurological Surgery
DX: Z98.1 Arthrodesis status (principal)
CPT/HCPCS: 99213

== ENCOUNTER → 2025-03-19 12:57 | Outpatient (BNVA) | payer OTHER, SELFPAY | PROVIDERS: Visit Provider Neurological Surgery | DX: Z98.1 Arthrodesis status (principal) | CPT/HCPCS: 99212 ==

== ENCOUNTER 2025-05-10 07:39 | Outpatient (REF) | payer OTHER, SELFPAY ==
--- NOTE | ~2025-05-10 | CT_ITS ---
CLINICAL HISTORY: Z98.1 - Arthrodesis status Exam: CT lumbar spine without IV contrast Comparison: MR - MR LUMBAR SPINE WO CON - 02/26/25 18:39 EDT Findings: 5 ujk-bau-fhoixtm lumbar-type vertebral bodies. Unchanged 3 mm anterolisthesis L4-5 and 5 mm anterolisthesis L5-S1. No spondylolysis seen. No acute fracture or suspicious osseous lesion. Status post L5-S1 spinal instrumentation including discectomy with disc spacer placement, posterior midline decompression and stabilization with pedicle screws and vertical rods, intact hardware, minimal air in the L5-S1 disc space without apparent osseous bridging, endplate sclerotic changes L5-S1. No abnormal lucency at the pedicle screws and bone interface. Unremarkable paraspinal musculature. Imaged abdominopelvic contents demonstrate nothing unusual. Segmental analysis: T12-L1, L1-L2: No disc protrusion or bulge. No central canal stenosis or foraminal narrowing. Unremarkable facets. L2-3, L3-4: No disc protrusion or bulge. No central canal stenosis or foraminal narrowing. Facet arthrosis L3-4 worse than L2-3. L4-5: Mild diffuse posterior disc bulge. Advanced facet arthrosis. No central canal stenosis. Mild foraminal narrowing bilaterally. L5-S1: Surgical level with exaggerated lordotic curvature. Prominent posterior vertebral osteophyte. The disc space and central canal are not well seen due to artifacts and suboptimal axial plane, there appears to be moderate to severe central canal stenosis and foraminal narrowing bilaterally, both descending and exiting nerve roots are probably infected, no substantial change when compared to recent MRI lumbar spine from 02/26/2025. Impression: 1. Status post L5-S1 spinal instrumentation, small air in the disc space without apparent osseous bridging, concerning for micromotion. 2. Unchanged grade 1 anterolisthesis L4-5 and L5-S1. 3. Multilevel spondylosis of the lumbar spine, worst at L5-S1, no substantial change. This document has been electronically signed by: Trina Lomax MD on 05/12/2025 16:06:38
--- OUTSIDE RECORDS SUMMARY | 2025-05-10 07:44 | XMS_ITS | Encounter Summary ---
Author Organization [employer] Address [address] [place] [address] 7 [place] [address] Care Team Providers Care Rn Cvor Name Role Phone [place] Primary Care Provider [phone] Reason for Visit * Reason Onset Date Comments Referral 06/27/2023 Encounter Details Date Type Department Care Team ([facility] st Contact Info) Description 06/27/2023 Telephone [facility] MEDICINE [address] [place], [place] [phone] [facility] [address] [place] [address] Referral Social History Tobacco Use Types Packs/Day [...] Miscellaneous Notes * Telephone Encounter - Sarita Ayala Lauren - 06/27/2023 12:14 PM EST Tc from pt daughter requesting a new referral for dermatology to be sent somewhere else due to pt not having any changes and looking for a second opinion . Please contact daughter @ [phone] documented in this encounter Plan of Treatment Not on file documented as of this encounter Visit Diagnoses Not on filedocumented in this encounter Additional Health Concerns Assessment Noted Time PHQ-9 Depression Total Score: 0 11/25/19 23 9:46 AM EDT documented as of this encounter Care Teams Rn Cvor Relationship Specialty Start Date End Date Gladys Hernandez FNP [address] [place] [address] PCP - General Family Medicine 02/17/22 documented as of this encounter
--- OUTSIDE RECORDS SUMMARY | 2025-05-10 07:44 | XMS_ITS | Encounter Summary ---
Author Organization [employer] Address [address] [facility] [address]t [place] [address] Care Team Providers Care Catering Administrative Assistant Name Role Phone Gladys Hernandez CENTRAL STERILE TECHNICIAN Primary Care Provider [phone] Encounter Details Date Type Department Care Team ([facility] st Contact Info) Description 05/23/2023 Abstract [facility] MEDICINE [address] [place] [address] Carolyn Forte Social History Tobacco Use Types [...] as of this encounter Plan of Treatment Not on file documented as of this encounter Visit Diagnoses Not on filedocumented in this encounter Additional Health Concerns Assessment Noted Time PHQ-9 Depression Total Score: 0 11/25/19 9:46 AM EDT documented as of this encounter Care Teams Catering Administrative Assistant Relationship Specialty Start Date End Date Gladys Hernandez FNP [address] [place] [address] PCP - General Family Medicine 02/17/22 documented as of this encounter
--- OUTSIDE RECORDS SUMMARY | 2025-05-10 07:44 | XMS_ITS | Encounter Summary ---
Author Organization [employer] Address [address] [facility] 7t [place] [address] Care Team Providers Care Cutter Out Name Role Phone Gladys Hernandez SWEET PICKLE MAKER Primary Care Provider [phone] Encounter Details Date Type Department Care Team ([facility] st Contact Info) Description 10/22/2024 Orders Only [facility] CHC MED & PEDS [address] [place], [place] [phone] Carolyn Forte Social History Tobacco Use Types [...] on file documented as of this encounter Procedures Procedure Name Priority Date/Time Associated Diagnosis Comments HPV MRNA E6/E7 REFLEX TO HPV 16, 18/45 Routine 06/05/2024 12:00 AM EST documented in this encounter Results * HPV mRNA E6/E7 w/Reflex to HPV Genotypes 16, 18/45 (06/05/2024 12:00 AM EST) Historical Provider LAB CYTOLOGY ORDERABLES F inal Result documented in this encounter Visit Diagnoses Not on filedocumented in this encounter Additional Health Concerns Assessment Noted Time PHQ-9 Depression Total Score: 0 03/06/20 24 9:16 AM EDT documented as of this encounter Care Teams Cutter Out Relationship Specialty Start Date End Date Gladys Hernandez FNP [address] [place] [address] PCP - General Family Medicine 02/17/22 documented as of this encounter
--- OUTSIDE RECORDS SUMMARY | 2025-05-10 07:44 | XMS_ITS | Encounter Summary ---
Author Organization [employer] Address [address] [place] [address] 7[address] [place] [address] Care Team Providers Care Classroom Monitor Name Role Phone [facility] Primary Care Provider [phone] Reason for Visit * Reason Onset Date Comments Referral 10/28/2022 Encounter Details Date Type Department Care Team ([facility] st Contact Info) Description 10/28/2022 Telephone [facility] MEDICINE [address] [place], [place] [phone] [facility] [address] [place] [address] Referral Social History Tobacco Use Types Packs/Day [...] agrees with plan. * Telephone Encounter - Leoncioanniemannyjarocho Jamie Aguilar - 10/28/2022 2:10 PM EDT Tc from pt requesting referral for the [facility] Please contact pt at [phone] documented in this encounter Plan of Treatment Not on file documented as of this encounter Visit Diagnoses Not on filedocumented in this encounter Care Teams Classroom Monitor Relationship Specialty Start Date End Date Gladys Hernandez FNP [address] [place] [address] PCP - General Family Medicine 02/17/22 documented as of this encounter
--- OUTSIDE RECORDS SUMMARY | 2025-05-10 07:44 | XMS_ITS | Encounter Summary ---
Author Organization [employer] Address [address] [place] [address] 7 [place] [address] Care Team Providers Care Leather Cutter Name Role Phone [facility] Primary Care Provider [phone] Reason for Visit * Reason Onset Date Comments Appointment Request 12/27/2023 Encounter Details Date Type Department Care Team ([facility] [address] Contact Info) Description 12/27/2023 Telephone [facility] MEDICINE [address] [place], [place] [phone] [facility] [address] [place] [address] Appointment Request Social History Tobacco Use Types [...] documented as of this encounter Care Teams Leather Cutter Relationship Specialty Start Date End Date Gladys Hernandez FNP [address] [place] [phone] PCP - General Family Medicine 02/17/22 documented as of this encounter
--- OUTSIDE RECORDS SUMMARY | 2025-05-10 07:45 | XMS_ITS | Clinical Summary ---
Author Organization [facility] Address [address] [place] [address] Care Team Providers Care Web Offset Press Feeder Name Role Phone MerylRose Primary Care Provider [phone] Allergies Active Allergy Reactions Criticality Noted Date [...] Health Maintenance Due Date Last Done Comments Cervical Cancer Screening 1965 Cologuard 1967 Colon Cancer Screening 1967 Colonoscopy 1965 FOBT / Fit Test 1967 HIV Screening 1965 HPV and Pap Smear 1967 Pap Smear 1965 Sigmoidoscopy 1965 Hepatitis B Vaccines (1 of 3 - 19+ 3-dose series) 10/23/1986 DTaP,Tdap,and Td Vaccines (1 - Tdap) 10/23/1989 Mammogram 2007 Pneumococcal Vaccine: 50+ Ye ars (1 of 1 - PCV) 10/23/2017 Zoster Vaccines (1 of 2) 10/23/2017 Alcohol/Substance Use Screening 06/26/2024 COVID-19 Vaccine (3 - 2024- season) 02/24/202501/2021, 04/12/2021 Influenza Vaccine (#1) 2025 Insurance [facility] HSNO/FREE CARE Care Teams Web Offset Press Feeder Relationship Specialty Start Date End Date Rose Sheth [address] [place] [address] [phone] PCP - General 09/15/21
--- OUTSIDE RECORDS SUMMARY | 2025-05-10 07:45 | XMS_ITS | Clinical Summary ---
Author Organization [facility] Address [address] [place] [address] Care Team Providers Care Machine Umbrella Tipper Name Role Phone Unavailable Primary Care Provider [...] medications Active Problems No known active problems Social [...] Care Team (Late st Contact Info) Description 05/14/2025 1:00 PM EST Office Visit [facility] [address] [place] [address] Ole Whaley, DDS [address] [place] [address] Health Maintenance Due Date Last Done Comments Anxiety Screening 1965 HPV Screening (self-collect) 1967 HPV Screening 1967 Lipid Screening 1967 Pap + HPV 1967 Imm-DTaP/Tdap/Td (1 - Tdap) 10/23/1986 Imm-Hepatitis B (1 of 3 - 19 + 3-dose series) 10/23/1986 Breast Cancer Screening (Mammogram) 2007 CT Colonography [...] 10/03/2023, 02/16/2023 Dental Prophy 10/04/2024 10/03/2023, 02/17/2023 Gai-DUVON-53 ( season) 2025 Imm-Influenza (#1) 2025 Hypertension Screening (#1) 01/22/2026 Tobacco Screening 01/22/2026 01/22/2025 Diabetes Screening 03/06/2027 03/06/2024 Cervical Cancer Screening 06/05/2027 Pap Smear 06/05/2027 06/05/2024 Dental FMX/Pano 02/19/2028 02/16/2023 HIV Screening Completed 03/06/2024, 02/24, 08/31/2021 Hepatitis C Screening Completed 03/06/2024 Cervical Ablation/Cold-Knife Conization Discontinued Cervical Cryotherapy Discontinued Colposcopy Discontinued Excision/Leep Discontinued HPV Genotyping Discontinued Vaginal Pap Discontinued Vulvoscopy Discontinued Procedures Procedure Name Priority Date/Time Associated Diagnosis Comments BITEWINGS - FOUR RADIOGRAPHIC IMAGES Routine 10/03/2023 1:40 PM EDT Encounter for dental examination PROPHYLAXIS - ADULT Routine 10/03/2023 1 :40 PM EDT Encounter for dental examination PERIODIC ORAL EVALUATION ESTABLISHED PATIENT Routine 10/03/2023 1:40 PM EDT Encounter for dental examination INTRAORAL - COMP SERIES OF RADIOGRAPHIC IMAGES Routine 02/16/2023 1:40 PM EDT Caries Caries of enamel (incipient) Defective dental jainism Encounter for dental examination from Last 3 Months or Most Recently Relevant to Health Maintenance Insurance [facility] [place]
--- OUTSIDE RECORDS SUMMARY | 2025-05-10 07:45 | XMS_ITS | Clinical Summary ---
Author Organization [facility] [place] [address] Care Team Providers Care Television Production Assistant Name Role Phone Abigail Ferguson RN Primary Care Provider [phone] Surgical History Surgery Date Site/Laterality Comments SECTION 1998 PROCEDURE: CO DELIVERY ONLY Medical History Medical History Date [...] Last Done Comments Breast Cancer Screening 1967 Colorectal Cancer Screening: Colonoscopy 1967 DTaP,Tdap,and Td Vaccines (1 - Tdap) 10/23/1986 Hepatitis B Vaccines (1 of 3 - 19+ 3-dose series) 10/23/1986 Cervical Cancer Screening: P ap Smear 10/23/1988 Pneumococcal Vaccine: 50+ Years (1 of 1 - PCV) 10/23/2017 Zoster Vaccines (1 of 2) 10/23/2017 HIV Screening 05/23/2022 Hepatitis C Screening 05/23/2022 Social Influencers of Health Screening 05/23/2022 Depression Screening 06/26/2024 COVID-19 Vaccine (3 - 2024-2 6 season) 2025 05/03/2021, 04/12/2021 Influenza Vaccine (#1) 2025 RSV Immunization Adult Patients (1 - 1-dose 75+ series) 10/23/2042 HIB Vaccines Aged Out No longer eligi [...] age to complete this topic Care Teams Television Production Assistant Relationship Specialty Start Date End Date Abigail Ferguson, LUZMA [address] [place] [phone] PCP - General 05/10/22
--- OUTSIDE RECORDS SUMMARY | 2025-05-10 07:46 | XMS_ITS | Clinical Summary ---
Author Organization [employer] Address [address] [facility] 7t [place] [address] Care Team Providers Care News Copy Editor Name Role Phone Gladys Hernandez [facility] Primary Care Provider [phone] Allergies Active Allergy Reactions Criticality Noted Date Comments Shellfish Protein-Containing Drug Products Angioedema High 09/29/2021 THROAT SWELLING/EYE SWELLING Medications estradiol-noret hindrone (Combipatch) 0.05-0.14 MG/DAYIndicatio ns:Vasomotor symptoms due to menopause Place 1 patch on the skin 2 (two) times a week. 8 patch 11 4 06/06/20 25 Active lidocaine (Lidoderm) 5 % patchIndication s:Spinal arthrodesis present Apply 1 patch topically Once per day. Remove & discard patch within 12 hours or as directed by MD. 30 patch 1 5 Active ibuprofen 400 MG tablet TAKE 1 TABLET BY MOUTH EVERY 6 HOURS NEEDED 2 05/01/20 25 Discontinu ed(Therapy completed) cyclobenzaprine (Flexeril) 5 MG tabletIndicatio ns:Muscle spasm Take 1 tablet (5 mg) by mouth if needed in the morning, at noon, and at bedtime for muscle spasms. 30 tablet 1 4 05/01/20 25 Discontinu ed(Therapy completed) Active Problems Problem Noted Date Diagnosed Date History of back surgery 10/03/2022 Overview (10/03/2022): She had l5-s1 spondylolisthesis causing low back pain with left leg radiculopathy. Patient had l5-s1 fusion at [facility] 09/05/2022 Cobalamin deficiency 08/08/2021 Vasomotor symptoms due to menopause 08/08/2021 Pain in the coccyx 08/08/2021 Encounters Date Type Department Care Team Description 04/16/2025 2:30 PM EDT Office Visit [facility] OPTOMETRY [address] [place] [address] Tamir, Minerva, OD Combined forms of age-related cataract of both eyes (Primary Dx); Meibomian gland disease of both eyes, unspecified eyelid; Presbyopia 04/16/2025 Travel 04/10/2025 Refill [facility] MEDICINE [address] [place] [address] [facility] Spinal arthrodesis present from Last 3 Months Family History Medical History Relation Name Comments [...] your housing situation today? I have addi nunu 03/06/[address] you li [...] 06/05/2024 12:01 PM EST Plan of Treatment Health Maintenance [...] 03/06/2025 03/06/2024 Mammogram 04/24/2025 04/24/2024 Tobacco Screening 05/01/2026 05/01/2025 Cervical Cancer Screening 06/05/2027 Pap Smear 06/05/2027 [...] 12:21 PM EST 06/06/2024 9:00 AM EST [facility] - 06/11/2024 10:02 AM EST ----- ------- Name: Rojelio BenzCassie Kowalski Age/Sex: 58/F : 1965 Unit#: [id number] Attend Dr: Gladys Hernandez Re06/05/[address] [facility] ----- ------- SPEC : [id number] RECD: 06/06/24 STATUS: CINDY TREVINO NUM: [id number] GABRIELLE: 06/05/24-1 [facility] DR: Gladys Hernandez ENTERED: 06/06/24 SP TYPE: Pap Smr OT [...] 06/11/24 1002 ----- ------- END OF REPORT [facility] LAB CYTOLOGY ORDERABLES Final Result [facility] [address] [place] [address] [phone] * HPV mRNA E6/E7 w/Reflex to HPV Genotypes 16, 18/45 (06/05/2024 12:00 AM EST) [facility] Provider MD LAB CYTOLOGY ORDERABLES F inal Result * BI Mammogram Screening Tomosynthesis Bilateral (04/24/2024 11:22 AM EDT) Anatomical Region Laterality Modality Breast Bilateral Mammography 04/24/2024 11:2 2 AM EDT Narrative 05/03/2024 9:38 AM EST [facility] [address] [place] [address] Mammography Report Signed Patient: Cassie West MR#: [id number] : 1965 Acct:[id number] Age/Sex: 58 / F ADM Date: 04/24/24 Loc: [facility] Attending Dr: Gladys Hernandez TEAM LEAD Ordering Physician: Gladys Hernandez Results: 1Nega tive Date of Service: 04/24/24 Follow Up: 1 Year From Orig inal Mammogram Procedure(s): MM tomosynthesis screening BI Accession Number(s): [id number] cc: Gladys Hernandez TEAM LEAD EXAMINATION: MM SCREENING DIGITAL BREAST TOMOSYNTHESIS, BILATERAL [...] by: Mayra Reyez DO 05/03/2024 09:35 AM [facility] Dictated By: Mayra Reyez DO Signed By: <Electronically signed by Mayra Reyez DO in OV> 05/03/24 0935 DD/ 1122 TD/TT: 04/24/24 1137 Sound Printer: Procedure Note Donotuseinterpreter, Image - 05/03/2024 [facility] [address] [place] [address] Mammography Report Signed Patient: Cassie West LMR#: [id number] : 1965Acct:[id number] Age/Sex: 58 / FADM Date: 04/24/24 Loc: HO.MAMMO Attending Dr: Gladys Hernandez TEAM LEAD Ordering Physician: Gladys Hernandez FNPResults: 1Nega tive Date of Service: 04/24/24Follow Up: 1 Year From Orig inal Mammogram Procedure(s): MM tomosynthesis screening BI Accession Number(s): [id number] cc: Gladys Hernandez TEAM LEAD EXAMINATION: MM SCREENING DIGITAL BREAST TOMOSYNTHESIS, BILATERAL [...] 05/03/24 0935 DD/ 1122 TD/TT: 04/24/24 1137 Sound Printer: [facility] IMG BI PROCEDURES Final Resul t * Hepatitis C Antibody with Reflex to HCV, RNA, Quantitative, Real-Time PCR (03/06/2024 10:33 AM EDT) Hepatitis C Antibody Nonreactive Nonreactive [facility] Comment:Antibodies to HCV no t detected; does not exclude early acuteHCV infection. Blood Venous blood specimen / Unknown 03/06/2024 10:33 AM EDT 03/06/2024 11:21 AM EDT [facility] LAB BLOOD ORDERABLES Final Re sult [facility] [address] [place] [address] [phone] * HIV-1/2 Antigen and Antibodies, Fourth Generation, with Reflexes (03/06/2024 10:33 AM EDT) HIV AB/AG Nonreactive Nonreactive [facility] Comment:HIV-1 p24 Ag and/or HIV-1/HIV-2 Ab not detected.A test result that is nonreactive does not exclude thepossibility of exposure to or infection with HIV-1 and/orHIV-2. Nonreactive results in this assay for individualswith prior exposure to HIV-1 and/or HIV-2 may be due toantigen and antibody levels that are below the limit ofdetection of this assay.The [employer] HIV Ag/Ab Combo assay result andsupplemental assay results should be interpreted inconjunction with the patient's clinical presentation,history and other laboratory results. If the results areinconsistent with clinical evidence, additional testing issuggested to confirm the result. Blood Venous blood specimen / Unknown 03/06/2024 10:33 AM EDT 03/06/2024 11:21 AM EDT [facility] TEAM LEAD LAB BLOOD ORDERABLES Final Re sult [facility] [address] [place] [address] [phone] from Last 3 Months or Most Recently Relevant to Health Maintenance Insurance [facility] Care Teams News Copy Editor Relationship Specialty Start Date End Date Gladys Hernandez FNP [address] [place] [phone] PCP - General Family Medicine 02/17/22
--- OUTSIDE RECORDS SUMMARY | 2025-05-10 07:46 | XMS_ITS | Encounter Summary ---
Author Organization [employer] Address [address] [place] [address] 7 [place] [address] Care Team Providers Care Aviation Mechanic Name Role Phone [place] [facility] Primary Care Provider [phone] Reason for Visit * Reason Onset Date Comments Appointment Request 04/24/2024 Encounter Details Date Type Department Care Team ([facility] Contact Info) Description 04/24/2024 Telephone [facility] MEDICINE [address] [place], [place] [phone] [facility] [address] [place] [address] Appointment Request Social History Tobacco Use Types [...] Miscellaneous Notes * Telephone Encounter - Riccardo Francisco - 04/24/2024 9:16 AM EDT Tc from pt calling in regards to letter received to schedule pap smear. Pt states her daughter takes her to her appts and her only days off are Monday. Utility Inspector attempted to schedule pap smear but found no availability. Please contact pt at [phone]. (Urdu Speaker) documented in this encounter Plan of Treatment Not on file documented as of this encounter Visit Diagnoses Not on filedocumented in this encounter Additional Health Concerns Assessment Noted Time PHQ-9 Depression Total Score: 0 03/06/20 24 9:16 AM EDT documented as of this encounter Care Teams Aviation Mechanic Relationship Specialty Start Date End Date Gladys Hernandez FNP [address] [place] [address] PCP - General Family Medicine 02/17/22 documented as of this encounter
== END 2025-05-10 07:40 | disposition home or self-care (01) ==
LOC: HO.CT 07:39
PROVIDERS: PCP Registered Nurse; Visit Provider Neurological Surgery
DX: Z98.1 Arthrodesis status (principal); M54.50 Low back pain, unspecified
CPT/HCPCS: 72131

== ENCOUNTER → 2025-05-10 07:44 | Outpatient (BNV) | payer OTHER, SELFPAY | PROVIDERS: PCP Registered Nurse; Visit Provider Radiology Diagnostic Radiology | DX: M43.16 Spondylolisthesis, lumbar region (principal); M43.17 Spondylolisthesis, lumbosacral region; M47.817 Spondylosis without myelopathy or radiculopathy, lumbosacral region; Z98.1 Arthrodesis status | CPT/HCPCS: 72131 ==